=== PATIENT | male | born 1970 | race Caucasian/White ===

== ENCOUNTER 2020-06-12 07:03 | Outpatient (REF) | payer OTHER, SELFPAY ==
[2020-06-12 08:06] LABS: MANUAL DIFF FLAG NO
[2020-06-12 08:12] LABS: Basophils Percent Auto 0.6 % (0-2); Eosinophils Absolute Auto 0.2 X10*3/uL (0.0-0.4); Eosinophils Percent Auto 4.2 % (0-4); Hematocrit 43.7 % (42-52); Hemoglobin 14.6 g/dl (14.0-18.0); Imm Gran Abs Auto 0.04 X10*3/uL (0.00-0.03); Imm Gran Pct Auto 0.8 % (0.0-0.4); Lymphocytes Absolute Auto 1.1 X10*3/uL (1.2-4.9); Lymphocytes Percent Auto 22.8 % (20-40); Mean Corpuscular HGB Conc 33.4 g/dl (31.0-36.0); Mean Corpuscular Hemoglobin 30.3 pg (27.0-33.0); Mean Corpuscular Volume 90.7 fL (80-98); Mean Platelet Volume 8.8 fL (9.4-12.4); Monocytes Absolute Auto 0.6 X10*3/uL (0.1-1.2); Monocytes Percent Auto 12.2 % (2-11); Neutrophils Percent Auto 59.4 % (45-73); Platelet Count 318 X10*3/uL (160-400); Red Blood Count 4.82 X10*6/uL (4.60-5.80); Red Cell Distribution Width 11.5 % (11.0-16.0)
[2020-06-12 08:26] LABS: Alanine Aminotransferase 12 U/L (0-40); Albumin Level 4.3 g/dL (3.5-5.0); Alkaline Phosphatase 55 U/L (39-117); Anion Gap 13 (12-20); Aspartate Amino Transferase 17 U/L (5-37); Bilirubin Total 0.8 mg/dL (0.0-1.0); Blood Urea Nitrogen 13 mg/dL (9-16); C Reactive Protein 0.52 mg/dL (< or = 0.50); Calcium 9.5 mg/dL (8.4-10.2); Carbon Dioxide 27 mmol/L (22-29); Chloride 100 mmol/L (96-108); Estimated Glomerular Filt Rate > 60; Glucose Random 89 mg/dL (60-115); Potassium 3.9 mmol/l (3.3-5.1); Rheumatoid Factor < 15.0 IU/mL (<15.0); Sodium 136 mmol/L (135-145); Total Protein 7.6 g/dL (6.5-8.0); Uric Acid 8.2 mg/dL (3.4-7.0)
[2020-06-12 09:05] LABS: Erythrocyte Sedimentation Rate 13 MM/HR (0-15)
[2020-06-17 10:56] LABS: Anti Nuclear Antibody Pattern Nuclear, Homogeneous; Anti Nuclear Antibody Screen POSITIVE (NEGATIVE); Anti Nuclear Antibody Titer 1:40 titer
[2020-06-17 16:02] LABS: Cyclic Citrullinated Peptide <16 UNITS
== END 2020-06-12 07:04 | disposition home or self-care (01) ==
LOC: HO.LAB 07:03
PROVIDERS: Visit Provider Dermatology
DX: M13.89 Other specified arthritis, multiple sites (principal)
CPT/HCPCS: 36415; 80053; 84550; 85025; 85652; 86038; 86039; 86140; 86200; 86431

== ENCOUNTER 2020-09-06 16:21 | Outpatient (REF) | payer OTHER, SELFPAY ==
[2020-09-06 16:47] LABS: MANUAL DIFF FLAG NO
[2020-09-06 16:50] LABS: Basophils Percent Auto 0.4 % (0-2); Eosinophils Absolute Auto 0.1 X10*3/uL (0.0-0.4); Eosinophils Percent Auto 1.7 % (0-4); Hematocrit 41.9 % (42-52); Imm Gran Abs Auto 0.04 X10*3/uL (0.00-0.03); Imm Gran Pct Auto 0.6 % (0.0-0.4); Mean Corpuscular HGB Conc 33.4 g/dl (31.0-36.0); Mean Corpuscular Hemoglobin 30.3 pg (27.0-33.0); Mean Corpuscular Volume 90.7 fL (80-98); Mean Platelet Volume 8.3 fL (9.4-12.4); Monocytes Absolute Auto 0.9 X10*3/uL (0.1-1.2); Monocytes Percent Auto 12.4 % (2-11); Neutrophils Absolute Auto 3.9 X10*3/uL (2.0-8.3); Neutrophils Percent Auto 55.9 % (45-73); Platelet Count 337 X10*3/uL (160-400); Red Blood Count 4.62 X10*6/uL (4.60-5.80); Red Cell Distribution Width 11.9 % (11.0-16.0)
[2020-09-06 16:58] LABS: Glucose Urine UA NEG (NEG); Leukocyte Esterase Urine NEG (NEG); Nitrite Urine NEG (NEG); Specific Gravity - Urine 1.025 (1.005-1.025); Urine Blood TRACE (NEG); Urine Ketones NEG (NEG); Urine Protein NEG (NEG-TRACE)
[2020-09-06 17:00] LABS: Color Urine YELLOW
[2020-09-06 17:01] LABS: Appearance Urine CLEAR
[2020-09-06 17:15] LABS: Alanine Aminotransferase 12 U/L (0-40); Albumin Level 4.5 g/dL (3.5-5.0); Alkaline Phosphatase 76 U/L (39-117); Aspartate Amino Transferase 15 U/L (5-37); Bilirubin Direct 0.2 mg/dL (0.0-0.5); Bilirubin Total 0.3 mg/dL (0.0-1.0); Lipase 34 U/L (8-78); Total Protein 7.9 g/dL (6.5-8.0)
[2020-09-06 17:19] LABS: RBC Urine 0-2 /HPF (0); Squamous Epithelial Cell Urine TRACE /LPF; WBC Urine 0 /HPF (0-4)
== END 2020-09-06 16:22 | disposition home or self-care (01) ==
LOC: HO.LAB 16:21
PROVIDERS: PCP Hospitalist; Visit Provider Hospitalist
DX: Z00.00 Encounter for general adult medical examination without abnormal findings (principal)
CPT/HCPCS: 36415; 80076; 81001; 81003; 83690; 84443; 85025

== ENCOUNTER 2020-11-07 07:10 | Day surgery (SDC) | payer OTHER, SELFPAY ==
[2020-10-31 15:02] VITALS: BMI 33.9
--- NOTE | 2020-11-06 09:36 | P.CONAN_ITS ---
Documented by User: Liliana Celestin 11/06/20 09:41 HPI - Anesthesia Eval Consult details Narrative: 50yo M for Colonoscopy PMFSH Active Problems Active Problems: All Active Problems (Updated 10/31/20 @ 15:00 by Dahlia Haddad) Colon cancer screening (Acute) Well adult exam (Acute) Hypertension, essential, benign (Acute) Erectile dysfunction (Acute) Past Medical History Medical History (Updated 10/31/20 @ 15:00 by Dahlia Haddad) Diverticulosis Eczema Fatty liver Gout HTN (hypertension) Hx of staphylococcal infection Renal cyst, right Surgical History Surgical History (Updated 10/31/20 @ 15:00 by Dahlia Haddad) H/O umbilical hernia repair History of ankle surgery History of surgical removal of ganglion cyst Social History Social History (Updated 10/31/20 @ 15:01 by Dahlia Haddad) Alcohol intake: current Alcohol intake frequency: holidays/special occasions only Smoking Status: Never smoker Use of substances other than those prescribed or required for medical reasons: No Have you been hit, kicked, punched, or otherwise hurt by someone within the past year? If so, by whom?: No Advance Directives: No Advance Directives Information Provided: No Advance Directives on File: No Meds Allergies Allergy/AdvReac Type Severity Reaction Status Date / Time No Known Allergies Allergy Verified 10/31/20 15:01 [No Known Allergies*] Home Medications Medication Instructions Recorded Confirmed Last Taken Type metoprolol succinate 25 mg 25 mg PO DAILY 09/13/20 Unknown History tablet,extended release 24 hr indomethacin 50 mg PO DAILY 10/31/20 10/31/20 Unknown History Exam Exam Date and Time: November 06, 2020 0936 Height,Weight and Vital Signs: Height 6 ft Weight 113.398 kg Pertinent Lab Results Pertinent Lab Results: Laboratory Tests 06/12/20 09/06/20 07:20 16:30 WBC 7.0 Hgb 14.0 Hct 41.9 L Plt Count 337 Sodium 136 Potassium 3.9 Chloride 100 Carbon Dioxide 27 BUN 13 Creatinine 0.79 Assessment and Plan Assessment Anesthesia Assessment: Chart Reviewed Documented by User: Wilfredo Brooks MD 11/07/20 08:11 [facility] Past Medical History Medical History (Updated 10/31/20 @ 15:00 by Dahlia Haddad) Diverticulosis Eczema Fatty liver Gout HTN (hypertension) Hx of staphylococcal infection Renal cyst, right Surgical History Surgical History (Updated 10/31/20 @ 15:00 by Dahlia Haddad) H/O umbilical hernia repair History of ankle surgery History of surgical removal of ganglion cyst Social History Social History (Updated 10/31/20 @ 15:01 by Dahlia Haddad) Alcohol intake: current Alcohol intake frequency: holidays/special occasions only Smoking Status: Never smoker Use of substances other than those prescribed or required for medical reasons: No Have you been hit, kicked, punched, or otherwise hurt by someone within the past year? If so, by whom?: No Advance Directives: No Advance Directives Information Provided: No Advance Directives on File: No Meds Allergies Allergy/AdvReac Type Severity Reaction Status Date / Time No Known Allergies Allergy Verified 10/31/20 15:01 [No Known Allergies*] Home Medications Medication Instructions Recorded Confirmed Last Taken Type metoprolol succinate 25 mg 25 mg PO DAILY 09/13/20 Unknown History tablet,extended release 24 hr indomethacin 50 mg PO DAILY 10/31/20 10/31/20 Unknown History Exam Airway Mallampati Class: I TM Dist: >3cm Neck ROM: Full Loose/Missing/Broken Teeth: No Heart: RRR, SINUS TACHY Lungs: NL Assessment and Plan Assessment Anesthesia Assessment: Anesthesia Plan Discussed and Chart Reviewed Final Anesthetic Review ASA Class: II Final Preanesthetic Review: No Changes in Pt Med Stat, Meds/Allgs Chart Reviewed, Consent Obtained/Reviewed and Anes Risks/Benef Reviewed Patient Risk: Intermediate Procedure Risk: Low Anesthetic Plan Anesthetic Plan: MAC: Disposition: Standard PACU
--- NOTE | 2020-11-07 07:17 | MHC.SHP ---
Pre-Procedural Eval Section B Chief Complaint: screening Relevant Family History (Specify if Yes): No Relevant Social History: None Present Medications: see Short Stay Collaborative assessment Medical History: Significant History (Diverticulosis Eczema Fatty liver Gout HTN (hypertension) Hx of staphylococcal infection Renal cyst, right) History of Previous Operations: Relevant previous surgery/procedure and date(s) (ankle surgery, umbilical hernia repair) Allergies: Allergies Allergy/AdvReac Type Severity Reaction Status Date / Time No Known Allergies Allergy Verified 10/31/20 15:01 [No Known Allergies*] Review of Systems Sugical H&P ROS: Negative: Constitution, Cardiovascular, Respiratory, Neurological, Psychiatric, Hem-Onc, Allergic/Immunologic, Gastrointestinal, Genitourinary, Musculoskeletal, Integumentary, Endocrine and Eyes/Ears/Nose/Throat Exam Surgical H&P Exam: Normal: HEENT, Normal: Heart, Normal: Lungs, Normal: Extremities, Normal: Abdomen, Normal: Skin and Normal: Neurological Plan Diagnosis/Plan: Unchanged I have reviewed the history and physical and performed a pertinent physical examination on my patient. No changes have occurred unless specified.
[2020-11-07 07:40] VITALS: BP 131/85; PULSE 110; RESP 18; TEMP 37.2; O2SAT 97
[2020-11-07] MEDS: Lactated Ringers 1,000 ML 100 ML IVCONT (07:51)
--- NOTE | 2020-11-07 08:42 | P.OP_ITS ---
Operative Note Operative Note Date of Service: 11/07/20 Narrative: Operative Information Procedure Description: Colonoscopy COLONOSCOPY Instrument: Olympus variable stiffness pediatric scope 190L Colonoscopy Monitoring: Vital signs and clinical assessment, continuous EKG monitoring, Pulse oximetry, Carbon Dioxide monitoring and blood pressure monitoring were done throughout the procedure. Colon withdrawal time was 14 minutes. Procedure: The patient was placed in the left lateral decubitis position and pre-procedure medications were administered. After a digital rectal examination of the ano-rectum, the video colonoscope was inserted into the rectum and advanced through the colon to the cecum/TI. The colonoscope was slowly withdrawn in a retrograde panoramic fashion and the colon mucosa was carefully examined including a retroflexed view of the rectum. Findings and interventions are described below. Procedure Difficulty: easy Findings: Terminal Ileum-normal Cecum:normal Ascending Colon: normal Transverse Colon -normal Descending Colon:normal Sigmoid Colon: normal Rectum: Retroflexion with moderate sized internal hemorrhoids, grade I, x 2 sessile polyps 8-9 mm in proximal rectum removed with forceps Anorectum - normal Colon preparation: [place] Bowel Preparation Scale Right colon; 2 Transverse colon: 2 Left colon; 2 (0 = Unprepared colon segment with mucosa not seen due to solid stool that cannot be cleared. 1 = Portion of mucosa of the colon segment seen, but other areas of the colon segment not well seen due to staining, residual stool and/or opaque liquid. 2 = Minor amount of residual staining, small fragments of stool and/or opaque li quid, but mucosa of colon segment seen well. 3 = Entire mucosa of colon segment seen well with no residual staining, small fragments of stool or opaque liquid) Impression and Post Procedure Diagnosis: polyps internal hemorrhoids Plan: High fiber diet leaflet Avoid straining at stool, epsom salts and sitz bath, anusol supps or cream as needed Repeat Colonoscopy in 5 years if adenoma, 10 yrs if hyperplastic or earlier if clinically indicated Above findings were reviewed with the patient and relevant handouts were provided if indicated.
--- NOTE | 2020-11-07 08:42 | PM.OP ---
Brief Operative Note Date of Service: 11/07/20 Pre-op diagnosis: colon screening Post-op diagnosis: same Procedure: see op note Surgeon: Chance St MD Anesthesia: MAC Estimated blood loss (mL): 0 Condition: stable Disposition: PACU
[2020-11-07 09:10] VITALS: BP 100/66; PULSE 100; RESP 16; TEMP 37.6; O2SAT 97
[2020-11-07 09:25] VITALS: BP 108/73; PULSE 85; RESP 17; TEMP 37; O2SAT 99
== END 2020-11-07 10:23 | disposition home or self-care (01) ==
PROVIDERS: Visit Provider Internal Medicine Gastroenterology
PROC: 0DJD8ZZ Inspection of Lower Intestinal Tract, Via Natural or Artificial Opening Endoscopic (ICD-10-PCS; CPT 45378; principal; 2020-11-07 08:30)
DX: Z12.11 Encounter for screening for malignant neoplasm of colon (principal); K62.1 Rectal polyp; K57.30 Diverticulosis of large intestine without perforation or abscess without bleeding; K64.0 First degree hemorrhoids; K76.0 Fatty (change of) liver, not elsewhere classified; I10 Essential (primary) hypertension; L30.9 Dermatitis, unspecified; Z79.899 Other long term (current) drug therapy
CPT/HCPCS: 45380; 88305; J3010

== ENCOUNTER 2020-11-11 15:37 | Outpatient (REF) | payer OTHER, SELFPAY ==
[2020-11-11 16:27] LABS: Cholesterol 159 mg/dL; HDL Cholesterol 26 mg/dL; LDL Cholesterol Calculated 89 mg/dl; Triglycerides 221 mg/dL
== END 2020-11-11 15:38 | disposition home or self-care (01) ==
LOC: HO.LAB 15:37
PROVIDERS: Visit Provider Hospitalist
DX: Z00.00 Encounter for general adult medical examination without abnormal findings (principal)
CPT/HCPCS: 36415; 80061

== ENCOUNTER → 2020-11-29 13:14 | Outpatient (BNVA) | payer OTHER, SELFPAY | PROVIDERS: PCP Hospitalist; Visit Provider Nurse Practitioner ==

== ENCOUNTER 2021-05-23 13:05 | Outpatient (REF) | payer OTHER, SELFPAY ==
--- NOTE | ~2021-05-23 | XR_ITS ---
EXAMINATION: XR SHOULDER, RIGHT CLINICAL INFORMATION: Pain right shoulder COMPARISON: None TECHNIQUE: AP external rotation, Grashey, scapular Y, and axillary views of the right shoulder. FINDINGS: There is severe loss of right glenohumeral shoulder joint space with moderate periarticular spurring. There are, subchondral cystic changes along the glenoid and the humeral head. The AC joint is intact. The soft tissues are normal. XR/XR shoulder RT min 2V IMPRESSION: Moderate degenerative arthritic changes right shoulder joint. No visible acute fracture or dislocation seen.
== END 2021-05-23 13:06 | disposition home or self-care (01) ==
LOC: HO.XRAY 13:05
PROVIDERS: PCP Hospitalist; Visit Provider Hospitalist
DX: M25.511 Pain in right shoulder (principal)
CPT/HCPCS: 73030

== ENCOUNTER 2021-12-04 08:03 | Outpatient (REF) | payer OTHER, SELFPAY ==
[2021-12-04 09:10] LABS: Alanine Aminotransferase 12 U/L (0-40); Albumin Level 4.4 g/dL (3.5-5.0); Alkaline Phosphatase 60 U/L (39-117); Anion Gap 14 (12-20); Aspartate Amino Transferase 13 U/L (5-37); Bilirubin Total 0.6 mg/dL (0.0-1.0); Blood Urea Nitrogen 16 mg/dL (9-16); Calcium 9.9 mg/dL (8.4-10.2); Carbon Dioxide 27 mmol/L (22-29); Chloride 101 mmol/L (96-108); Estimated Glomerular Filt Rate > 60; Glucose Fasting 116 mg/dL (60-99); Potassium 4.5 mmol/L (3.3-5.1); Sodium 137 mmol/L (135-145); Total Protein 7.6 g/dL (6.5-8.0)
== END 2021-12-04 08:04 | disposition home or self-care (01) ==
LOC: HO.LAB 08:03
PROVIDERS: PCP Hospitalist; Visit Provider Hospitalist
DX: Z00.01 Encounter for general adult medical examination with abnormal findings (principal)
CPT/HCPCS: 36415; 80053

== ENCOUNTER 2022-10-29 12:07 | Outpatient (REF) | payer OTHER, SELFPAY ==
--- NOTE | ~2022-10-29 | XR_ITS ---
EXAMINATION: XR SHOULDER, RIGHT CLINICAL INFORMATION: Right shoulder pain. COMPARISON: None available. TECHNIQUE: AP neutral, scapula Y and axillary views of the right shoulder are submitted. FINDINGS: There is bony demineralization. There is marked narrowing of the right acetabular joint space, with exuberant peripheral osteophyte formation of the inferior articular surface. The acromioclavicular and coracoclavicular intervals are normal. No fracture or dislocation is seen. There is mild calcific tendinitis of the right rotator cuff. There is no foreign body. No right pneumothorax is seen. XR/XR shoulder RT min 2V IMPRESSION: 1. There is marked osteoarthritic change of the right glenohumeral joint. 2. There is calcific tendinitis of the right rotator cuff insertion.
== END 2022-10-29 12:08 | disposition home or self-care (01) ==
LOC: HO.HOSX 12:07
PROVIDERS: Visit Provider Orthopaedic Surgery
DX: M19.011 Primary osteoarthritis, right shoulder (principal)
CPT/HCPCS: 73030

== ENCOUNTER 2022-12-09 14:53 | Outpatient (REF) | payer OTHER, SELFPAY ==
--- NOTE | ~2022-12-09 | CT_ITS ---
EXAMINATION: CT SHOULDER WITHOUT CONTRAST, RIGHT CLINICAL INFORMATION: Left shoulder osteoarthritis, presurgical planning COMPARISON: Radiographs 10/29/2022 TECHNIQUE: A noncontrast CT of the right shoulder is performed with sagittal and coronal reformats This CT examination was performed using dose optimization techniques as appropriate, variously including the following: *Automated exposure control *Adjustment of mA and/or kV according to patient size (this includes techniques or standardized protocols for targeted exams where dose is matched to indication/reason for exam; i.e. extremities or head) *Use of iterative reconstruction technique DLP: 380 mGy-cm FINDINGS: Severe glenohumeral osteoarthritis with marked narrowing, numerous degenerative cysts, and prominent marginal osteophytes. There is remodeling of the glenoid resulting in a retroversion of approximately 13 degrees. The corrected glenoid vault depth is approximately 19 mm, and the humeral head is posteriorly subluxed [address]/CT shoulder RT wo IV con IMPRESSION: Severe glenohumeral osteoarthritis.
== END 2022-12-09 14:54 | disposition home or self-care (01) ==
LOC: HO.CT 14:53
PROVIDERS: PCP Hospitalist; Visit Provider Orthopaedic Surgery
DX: M19.011 Primary osteoarthritis, right shoulder (principal)
CPT/HCPCS: 73200

== ENCOUNTER 2023-04-08 14:54 | Outpatient (AMB) | payer OTHER, SELFPAY ==
--- NOTE | 2023-04-08 15:06 | MHC.PC.OV ---
Vital Signs 04/08/23 15:07 Height 6 ft Weight 247 lb 4 oz BMI 33.5 BP 122/78 Blood Pressure Location Rt brachial Position Sitting Respiration 12 Pulse 97 Pulse Source Pulse Oximeter Temp 97.6 F Temp Source Temporal Artery Scan Pulse Oximetry (%) 99 Oxygen Delivery Method Room Air Intake Visit Reasons: 05/11/23 - R TSA under [place] First Breaker Feeder Required: No Accompanied by: Self / Same As Patient Allergies avocado Allergy (Intermediate, Verified 04/08/23 15:16) itch throat and hard to breath banana Allergy (Intermediate, Verified 04/08/23 15:16) itch throat and hard to breath nuts Allergy (Unknown, Uncoded 05/26/22 15:02) itchy throat, SOB Medication List - Last Reconciled 04/08/23 by Shani Chance CNP indomethacin 100 mg (2 x 50 mg) PO DAILY 30 days lisinopril 10 mg PO DAILY lorazepam 0.5 mg PO DAILY PRN sildenafil 100 mg PO DAILY PRN Tobacco use date assessed: 10/07/22 Dental Screening Dental Screen Date: 04/08/23 Did you have a dental visit in the last 12 months?: Yes Did you have a dental problem in the last 6 months where you did not have access to dental care?: No Was dental information given to patient?: Patient has dentist HPI HPI Comments History of Present Illness Details 52-year-old male presents for a preop exam. He notes he is scheduled for total replacement of the right shoulder on 05/11/2023. He reports chronic intermittent right shoulder pain. No acute symptoms today. He is [place] [facility] Medical History Diverticulosis Eczema Fatty liver Gout HTN (hypertension) Hx of staphylococcal infection Renal cyst, right Surgical History H/O umbilical hernia repair History of ankle surgery History of surgical removal of ganglion cyst Social History Housing: House Alcohol intake: current Alcohol intake frequency: holidays/special occasions only Patient Tobacco Use Status: Never used Tobacco e-Cigarette/Vaping Use: Never Used Second Hand Smoke Exposure: No service: No Current occupational status: employed Current occupation: [employer] Cognitive needs: No Hearing needs: No Vision needs: Yes (reading glasses) Questionnaire Thrive Questionnaire Date Thrive assessed: 10/07/22 CARLOS-7 AMB Questionnaire CARLOS-7 Date CARLOS - 7 assessed: 10/07/22 Source: Developed by Drs. Marek Hermosillo, Ya Coffman, Shekhar Roberts and colleagues, with an educational beckie from [employer]. Review of Systems Const Details: Const Denies chills, Denies fatigue, Denies fever(s), Denies headache(s) and Denies weakness ENT Denies dizziness and Denies headache(s) Card Denies chest pain, Denies lightheadedness, Denies dyspnea and Denies other (Palpitations) Resp Denies cough, Denies dyspnea, Denies wheezing and Denies other ( shortness of breath) GI Denies abdominal pain, Denies melena, Denies hematochezia, Denies change in bowel habits, Denies dyspepsia and Denies nausea Denies hematuria and Denies dysuria Musc Denies abnormal gait, Denies myalgias, Denies arthralgias, Denies numbness and Denies tingling Skin/Breast Denies rash, Denies unusual bruising and Denies wounds Neuro Denies abnormal gait, Denies dizziness, Denies headache(s), Denies memory loss, Denies numbness, Denies Sensory deficit (Neuro), Denies tingling and Denies weakness Psych Denies anxiety, Denies depression, Denies memory loss Endo Denies cold intolerance, Denies fatigue, Denies heat intolerance, Denies polydipsia and Denies polyuria Aller/Immun Denies wheezing Physical exam (Primary Care) Vital Signs: Last Vital Signs Temp 97.6 F 04/08/23 15:07 Pulse 97 04/08/23 15:07 Resp 12 04/08/23 15:07 BP 122/78 04/08/23 15:07 Pulse Ox 99 04/08/23 15:07 Oxygen Delivery Method Room Air 04/08/23 15:07 BMI result Body Mass Index 33.5 Tobacco/Smoking Status: Tobacco use Status Tobacco use date assessed 10/07/22 04/08/23 15:13 Patient Tobacco Use Status Never used Tobacco 04/08/23 15:13 e-Cigarette/Vaping Use Never Used 04/08/23 15:13 Thrive Assessment: Date of Thrive Assessment Date Thrive assessed 10/07/22 04/08/23 15:13 Const Other: General: no acute distress and well developed Nutritional Appearance: well nourished Orientation/consciousness: patient oriented x3 [facility] Head: Yes normocephalic and Yes atraumatic Eyes General: appearance normal, both eyes and all related structures Pupils: Equal, round and reactive pupils present EOM: EOMs intact bilaterally Resp Effort & Inspection: normal respiratory effort Auscultation: clear to auscultation bilaterally Cardio Rate: regular rate Rhythm: regular rhythm Heart sounds: S1 normal heart sound present, S2 normal heart sound present, no gallops, no murmurs and no rubs GI Palpation (GI): No Abdominal aortic bruit present, Soft to palpation, nontender, No hepatosplenomegaly present and No Rebound tenderness present Auscultation: normal bowel sounds General: Yes no CVA tenderness Back/Spine/Pelvis Back: no CVA tenderness Cervical Spine: cervical ROM normal and No Cervical spine tenderness Thoracic/Lumbar Spine: thoraco-lumbar ROM normal, No pain with thoraco-lumbar ROM, No thoracic spinal tenderness and No lumbar spinal tenderness Extrem General: Yes normal to inspection, No edema and No calf tenderness Limited ROM of the right shoulder Skin General: warm and dry. Normal skin color. Normal skin turgor Lesions: no lesions Rashes: no rashes Trauma: no lacerations or abrasions Wounds: no wounds Nails: normal Neuro General: patient oriented x3, gait normal and no focal neuro deficit Cranial nerves: Yes Equal, round and reactive pupils present Cognition (Neuro): normal cognition Gait exam (Neuro): Normal gait present Sensory Exam: No Sensory deficit (Neuro) Psych Appearance: grossly normal Affect: normal affect Attitude: cooperative Thought process: Normal thought process present Assessment and Plan Assessment & Plan (1) Preop examination: Code(s): Z01.818 - Encounter for other preprocedural examination Plan: 52-year-old male presents for a preop exam. He notes he is scheduled for total replacement of the right shoulder on 05/11/2023. He reports chronic intermittent right shoulder pain. No acute symptoms today. Limited ROM of the right shoulder. Physical exam is otherwise normal. He has not had blood work in a long time. Routine labs ordered. Advised to fast for at least 10-12 hours before getting blood work done. Follow-up with PCP as planned. Return with new or worsening symptoms. Verbalized understanding and agreed with treatment plan. Orders: Orders Lipid Panel Today Z01.818 - Encounter for other preprocedural examination TSH reflex Free T4 Today Z01.818 - Encounter for other preprocedural examination Complete Blood Count Auto Diff Today Z01.818 - Encounter for other preprocedural examination Comprehensive [place]. Panel Fast Today Z01.818 - Encounter for other preprocedural examination Coding Level of Care Code Est Pt Level 3 (47235) Diagnoses Preop examination Z01.818
[2023-04-08 15:07] VITALS: BP 122/78; PULSE 97; RESP 12; TEMP 36.4; O2SAT 99; BMI 33.5
== END 2023-04-08 15:46 | disposition home or self-care (01) ==
PROVIDERS: PCP Hospitalist; Visit Provider Nurse Practitioner Family
DX: Z01.818 Encounter for other preprocedural examination (principal)
CPT/HCPCS: 99213

== ENCOUNTER 2023-04-12 05:54 | Outpatient (REF) | payer OTHER, SELFPAY ==
[2023-04-12 06:09] LABS: MANUAL DIFF FLAG NO
[2023-04-12 08:18] LABS: Basophils Absolute Auto 0.1 X10*3/uL (0.0-0.2); Eosinophils Absolute Auto 0.1 X10*3/uL (0.0-0.4); Eosinophils Percent Auto 2.3 % (0-4); Hematocrit 44.6 % (42.0-52.0); Hemoglobin 14.8 g/dl (14.0-18.0); Imm Gran Abs Auto 0.08 X10*3/uL (0.00-0.03); Imm Gran Pct Auto 1.3 % (0.0-0.4); Lymphocytes Absolute Auto 1.6 X10*3/uL (1.2-4.9); Lymphocytes Percent Auto 25.4 % (20-40); Mean Corpuscular HGB Conc 33.2 g/dl (31.0-36.0); Mean Corpuscular Hemoglobin 30.5 pg (27.0-33.0); Mean Platelet Volume 8.4 fL (9.4-12.4); Monocytes Absolute Auto 0.9 X10*3/uL (0.1-1.2); Monocytes Percent Auto 14.2 % (2-11); Neutrophils Absolute Auto 3.4 x10*3/uL (2.0-8.3); Neutrophils Percent Auto 55.8 % (45-73); Platelet Count 346 X10*3/uL (160-400); Red Blood Count 4.85 X10*6/uL (4.60-5.80); Red Cell Distribution Width 11.8 % (11.0-16.0); White Blood Count 6.1 X10*3/uL (4.8-10.8)
[2023-04-12 09:15] LABS: Alanine Aminotransferase 12 U/L (0-40); Albumin Level 4.3 g/dL (3.5-5.0); Alkaline Phosphatase 56 U/L (39-117); Anion Gap 12 (12-20); Aspartate Amino Transferase 14 U/L (5-37); Bilirubin Total 0.5 mg/dL (0.0-1.0); Blood Urea Nitrogen 20 mg/dL (9-16); Calcium 9.8 mg/dL (8.4-10.2); Carbon Dioxide 27 mmol/L (22-29); Chloride 103 mmol/L (96-108); Cholesterol 185 mg/dL (<200); Estimated Glomerular Filt Rate > 60; Glucose Fasting 86 mg/dL (60-99); HDL Cholesterol 37 mg/dL (>40); LDL Cholesterol Calculated 119 mg/dL (<100); Sodium 138 mmol/L (135-145); TSH reflex Free T4 1.34 uIU/mL (0.32-4.0); Total Protein 7.8 g/dL (6.5-8.0); Triglycerides 147 mg/dL (<150)
== END 2023-04-12 05:55 | disposition home or self-care (01) ==
LOC: HO.LAB 05:54
PROVIDERS: PCP Hospitalist; Visit Provider Nurse Practitioner Family
DX: Z01.818 Encounter for other preprocedural examination (principal)
CPT/HCPCS: 36415; 80053; 80061; 84443; 85025

== ENCOUNTER → 2023-04-13 12:41 | Outpatient (BNVA) | payer OTHER, SELFPAY | PROVIDERS: Visit Provider Orthopaedic Surgery ==

== ENCOUNTER 2023-05-06 13:05 | Outpatient (AMB) | payer OTHER, SELFPAY ==
[2023-05-06 13:17] VITALS: BMI 33.5
--- NOTE | 2023-05-06 13:17 | MHC.OFFVIS ---
Intake Vital Signs 05/06/23 13:17 Height 6 ft Weight 247 lb BMI 33.5 Intake Visit Reasons: Pre-Op RT TSA 05/11/23 NE Intake Note: Lukasz 52 yr old male presents today for his Pre op visit for his Right TSA schedule for 05/11/23. Pain management agreement signed and reviewed. Shoulder sling fitted. Allergies avocado Allergy (Intermediate, Verified 05/06/23 13:28) itchy throat, shortness of breath banana Allergy (Intermediate, Verified 05/06/23 13:28) itchy throat, shortness of breath tree nut Allergy (Intermediate, Verified 05/06/23 13:28) itchy throat, shortness of breath HPI HPI Comments History of Present Illness Details Ms Calles presents to the office today for preop visit. He is scheduled for right total shoulder arthroplasty with Dr. Caban. He continues to have ongoing pain and difficulty with in the right shoulder, which is affecting his quality of life; therefore, he has elected to move forward with surgery. [facility] Medical History (Updated 05/06/23 @ 15:04 by Jeremy Gifford PA-C) Arthritis Eczema Diverticulosis Fatty liver Hx of staphylococcal infection Gout HTN (hypertension) Surgical History (Updated 04/27/23 @ 11:47 by Arely Pradhan RN) H/O colonoscopy H/O umbilical hernia repair History of surgical removal of ganglion cyst History of ankle surgery Social History Housing: House Are you a primary rn intensive care unit to a significant other at home: No Do you presently have visiting nurse or other home services: No Alcohol intake: current Alcohol intake frequency: holidays/special occasions only Patient Tobacco Use Status: Never used Tobacco e-Cigarette/Vaping Use: Never Used Second Hand Smoke Exposure: No Use of substances other than those prescribed or required for medical reasons: Yes Substance Use Frequency: Occasionally Have you been hit, kicked, punched, or otherwise hurt by someone within the past year? 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 Cognitive needs: No Hearing needs: No Vision needs: Yes (reading glasses) Review of Systems Const All systems reviewed & are unremarkable except as noted in HPI and below Physical Exam Vital Signs: BMI result Body Mass Index 33.5 Const General: no acute distress, alert and awake Orientation/consciousness: patient oriented x3 HEENT Head: Yes normocephalic and Yes atraumatic Eyes General: appearance normal, both eyes and all related structures EOM: EOMs intact bilaterally Neck Neck: Yes normal visual inspection and Yes no lymphadenopathy Resp Effort & Inspection: normal respiratory effort and able to speak in complete sentences Cardio Jugular venous distension: no JVD Rate: regular rate Peripheral pulses: Peripheral pulses 2+ throughout GI Inspection: Yes normal to inspection Palpation (GI): Soft to palpation Skin General skin exam: turgor normal Rashes: no rashes Neuro General: patient oriented x3 Extrem Other: Right Shoulder: AB 80 degrees ER 20 degrees - Empty can Skin intact. No abrasion. Psych Appearance: grossly normal Mental Status: mental status grossly normal Affect: normal affect Attitude: cooperative Results Reviewed Results Reviewed: MRI of the right shoulder : 1. Intact RTC. Mild infraspinatus muscle atrophy with fatty replacement 2. Severe GHJ oa Assessment & Plan Assessment & Plan (1) Osteoarthritis of right glenohumeral joint: Code(s): M19.011 - Primary osteoarthritis, right shoulder Plan I discussed in detail the procedure and what to expect pre and post operatively. We discussed the risks, benefits and alternatives to the surgery as well as the rehabilitation course. The risks; which include, but are not limited to infection, bleeding, nerve injury, ongoing pain, swelling, and stiffness, perioperative risk of injury to bones and soft tissues, and blood clots. I?ve answered all questions and with their understanding they have consented to move forward with Right total shoulder arthroplasty with Dr. Caban Coding Level of Care Code Est Pt Level 3 (92494) Diagnoses Osteoarthritis of right glenohumeral joint M19.011
== END 2023-05-06 13:51 | disposition home or self-care (01) ==
PROVIDERS: Visit Provider Physician Assistant
DX: M19.011 Primary osteoarthritis, right shoulder (principal)
CPT/HCPCS: 99213

== ENCOUNTER → 2023-05-06 13:05 | Outpatient (BNVA) | payer OTHER, SELFPAY | PROVIDERS: Visit Provider Physician Assistant ==

== ENCOUNTER 2023-05-11 05:55 | Day surgery (SDC) | payer OTHER, SELFPAY ==
[2023-04-27 11:50] VITALS: BP 122/76; PULSE 64; RESP 20; O2SAT 97; BMI 33.5
--- NOTE | 2023-04-27 12:09 | HO.ANESPROP2 ---
Documented by User: Liliana Celestin NP 05/10/23 08:53 HPI - Anesthesia Eval Consult details Narrative: 52yo M for Right Right Shoulder Total Arthroplasty, 05/11/23 Medically optimized No recent illness No CP/SOB with > 4mets PMFSH Active Problems Active Problems: All Active Problems (Updated 04/27/23 @ 11:45 by Arely Pradhan, RN) Preop examination (Acute) Normal physical exam (Acute) Encounter for routine adult physical exam with abnormal findings (Acute) Arthritis of shoulder region, right (Acute) Right anterior shoulder pain (Acute) Hypertriglyceridemia (Acute) Low HDL (under 40) (Acute) Anxiety and depression (Acute) Erectile dysfunction (Acute) Hypertension, essential, benign (Acute) Well adult exam (Acute) Colon cancer screening (Acute) Gout (Acute) Eczema (Acute) Past Medical History Medical History (Updated 05/06/23 @ 15:04 by Jeremy Gifford PA-C) Arthritis Eczema Diverticulosis Fatty liver Hx of staphylococcal infection Gout HTN (hypertension) Family History Family history of problems with anesthesia: No Surgical History Surgical History (Updated 04/27/23 @ 11:47 by Arely Pradhan RN) H/O colonoscopy H/O umbilical hernia repair History of surgical removal of ganglion cyst History of ankle surgery History of Problems with Anesthesia: No Social History Social History (Reviewed 05/06/23 @ 13:28 by Annemarie Gimenez [facility]) Housing: House Are you a primary direct care professional to a significant other at home: No Do you presently have visiting nurse or other home services: No Alcohol intake: current Alcohol intake frequency: holidays/special occasions only Patient Tobacco Use Status: Never used Tobacco e-Cigarette/Vaping Use: Never Used Second Hand Smoke Exposure: No Use of substances other than those prescribed or required for medical reasons: Yes Substance Use Frequency: Occasionally Have you been hit, kicked, punched, or otherwise hurt by someone within the past year? 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 Cognitive needs: No Hearing needs: No Vision needs: Yes (reading glasses) Meds Allergies Allergy/AdvReac Type Severity Reaction Status Date / Time avocado Allergy Intermediate itchy Verified 05/06/23 13:28 throat, shortness of breath banana Allergy Intermediate itchy Verified 05/06/23 13:28 throat, shortness of breath tree nut Allergy Intermediate itchy Verified 05/06/23 13:28 throat, shortness of breath Home Medications Medication Instructions Recorded Confirmed Last Taken Type dupilumab 300 mg/2 mL subcutaneous 300 mg subcut Q2W eczema 04/13/23 04/27/23 05/08/23 History syringe (DupixProximus) indomethacin 50 mg capsule 100 mg PO QAM 04/27/23 04/27/23 05/06/23 History lisinopril 10 mg tablet 10 mg PO QAM 04/27/23 04/27/23 05/10/23 History Exam Exam Date and Time: April 27, 2023 1209 Height,Weight and Vital Signs: Height 6 ft Weight 112.037 kg Last Vital Signs Pulse 64 04/27/23 11:50 Resp 20 04/27/23 11:50 BP 122/76 04/27/23 11:50 Pulse Ox 97 04/27/23 11:50 O2 Del Method Room Air 04/27/23 11:50 Pertinent Lab Results Pertinent Lab Results: Laboratory Tests 04/12/23 06:07 WBC 6.1 Hgb 14.8 Hct 44.6 Plt Count 346 Sodium 138 Potassium 4.0 Chloride 103 Carbon Dioxide 27 BUN 20 H Creatinine 0.77 Narrative Narrative: EKG 04/2023 Vent. Rate : 068 BPM Atrial Rate : 068 BPM P-R Int : 146 ms QRS Dur : 090 ms QT Int : 400 ms P-R-T Axes : 051 031 022 degrees QTc Int : 425 ms Normal sinus rhythm Normal ECG When compared with ECG of 18-OCT-2015 11:57, Premature ventricular complexes are no longer Present Vent. rate has decreased BY 37 BPM Airway Mallampati Class: I TM Dist: >3cm Neck ROM: Full Loose/Missing/Broken Teeth: No (3 x crowned molars) Heart: RRR Lungs: CTAB Assessment and Plan Assessment Anesthesia Assessment: Anesthesia Plan Discussed and PAT Visit Final Anesthetic Review Family History of Problems with Anesthesia: No History of Problems with Anesthesia: No Documented by User: Robert Jacobs MD 05/11/23 07:22 [facility] Past Medical History Medical History (Updated 05/06/23 @ 15:04 by Jeremy Gifford PA-C) Arthritis Eczema Diverticulosis Fatty liver Hx of staphylococcal infection Gout HTN (hypertension) Surgical History Surgical History (Updated 04/27/23 @ 11:47 by Arely Pradhan RN) H/O colonoscopy H/O umbilical hernia repair History of surgical removal of ganglion cyst History of ankle surgery Social History Social History (Reviewed 05/06/23 @ 13:28 by Annemarie Gimenez [facility]) Housing: House Are you a primary direct care professional to a significant other at home: No Do you presently have visiting nurse or other home services: No Alcohol intake: current Alcohol intake frequency: holidays/special occasions only Patient Tobacco Use Status: Never used Tobacco e-Cigarette/Vaping Use: Never Used Second Hand Smoke Exposure: No Use of substances other than those prescribed or required for medical reasons: Yes Substance Use Frequency: Occasionally Have you been hit, kicked, punched, or otherwise hurt by someone within the past year? 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 Cognitive needs: No Hearing needs: No Vision needs: Yes (reading glasses) Meds Allergies Allergy/AdvReac Type Severity Reaction Status Date / Time avocado Allergy Intermediate itchy Verified 05/06/23 13:28 throat, shortness of breath banana Allergy Intermediate itchy Verified 05/06/23 13:28 throat, shortness of breath tree nut Allergy Intermediate itchy Verified 05/06/23 13:28 throat, shortness of breath Home Medications Medication Instructions Recorded Confirmed Last Taken Type dupilumab 300 mg/2 mL subcutaneous 300 mg subcut Q2W eczema 04/13/23 04/27/23 05/08/23 History syringe (Dupixent) indomethacin 50 mg capsule 100 mg PO QAM 04/27/23 04/27/23 05/06/23 History lisinopril 10 mg tablet 10 mg PO QAM 04/27/23 04/27/23 05/10/23 History Exam Airway Mallampati Class: III Assessment and Plan Final Anesthetic Review NPO: Yes ASA Class: III Final Preanesthetic Review: No Changes in Pt Med Stat, Meds/Allgs Chart Reviewed, Consent Obtained/Reviewed and Anes Risks/Benef Reviewed Patient Risk: Intermediate Procedure Risk: Intermediate Anesthetic Plan Anesthetic Plan: GA and Regional Block Disposition: Standard PACU
--- NOTE | 2023-04-27 12:33 | ECG_ITS ---
Test Reason : preop Blood Pressure : / mmHG Vent. Rate : 068 BPM Atrial Rate : 068 BPM P-R Int : 146 ms QRS Dur : 090 ms QT Int : 400 ms P-R-T Axes : 051 031 022 degrees QTc Int : 425 ms Normal sinus rhythm Normal ECG When compared with ECG of 18-OCT-2015 11:57, Premature ventricular complexes are no longer Present Vent. rate has decreased BY 37 BPM Referred By: Jeremy Gifford Electronically Signed By:VICK BETHEA
[2023-04-27 15:14] LABS: MRSA Nasal PCR NEGATIVE (Negative); SA Nasal PCR POSITIVE (Negative)
[2023-05-11] VITALS (13 sets, daily range): BP systolic 102–146; BP diastolic 58–100; PULSE 70–93; RESP 16–20; TEMP 36.2–37.1; O2SAT 93–98; BMI 33.5
--- NOTE | ~2023-05-11 | XR_ITS ---
EXAMINATION: XR SHOULDER, RIGHT CLINICAL INFORMATION: Right TSA COMPARISON: Right shoulder radiograph 11/09/2022, right shoulder CT 12/09/2022 TECHNIQUE: AP internal rotation and scapular Y of the right shoulder. FINDINGS: Postoperative views of the right shoulder demonstrate a prosthesis in the the right humeral head. No fracture. Glenohumeral and acromioclavicular alignment is anatomic. Subchondral cystic changes are seen within the glenoid. The AC joint is intact. Skin aleks project over the right shoulder. XR/XR shoulder RT min 2V IMPRESSION: Postoperative changes of the right shoulder without evidence of hardware complication.
[2023-05-11] MEDS: Lactated Ringers 1,000 ML 100 ML IVCONT ×3 (06:41→22:07)
--- NOTE | 2023-05-11 10:31 | P.BOP_ITS ---
Brief Operative Note Date of Service: 05/11/23 Pre-op diagnosis: Right shoulder OA Post-op diagnosis: same Procedure: Right TSA Implants: Tournier simplicity Pegged gelnoid with 15 deg posterior wedge, cemented Surgeon: Milind Caban MD Anesthesia: GETA Was an Internal Affairs Investigator used for this Procedure?: Yes Internal Affairs Investigator: Jeremy Gifford Estimated blood loss (mL): 200 IV fluids (mL): 1,000 Pathology: other Condition: stable Disposition: PACU
--- NOTE | 2023-05-11 11:30 | PHA.MEDREC ---
Pharmacy Consult ? Medication Reconciliation Pharmacy has reviewed the medication reconciliation.
[2023-05-11] MEDS: ceFAZolin Sodium/Dextrose,Iso 2 GM/50 ML PIGGYBACK IV ×2 (14:36→15:07)
--- NOTE | 2023-05-11 20:01 | PC.NURSE ---
Assumed care at 14:00. Alert and oriented x4, ambulating independently, OOB to chair. Doing IS to 2500 ccs with 10 reps at a time. LSC. Denying pain. Dressing intact without staining, arm brace in place, voiding without issue, no straight cath required.
[2023-05-11] MEDS: oxyCODONE HCl ER 10 MG TAB.ER.12H 20 MG PO (20:51)
[2023-05-11] MEDS: Celecoxib 200 MG CAPSULE PO (20:51)
[2023-05-11] MEDS: Docusate Sodium 100 MG CAPSULE PO (20:52)
[2023-05-11] MEDS: Aspirin 81 MG TAB.CHEW PO (20:52)
[2023-05-12] VITALS: BP 116/72; PULSE 77; RESP 16; TEMP 36.1; O2SAT 96
[2023-05-12 04:00] VITALS: BP 130/76; PULSE 67; RESP 16; TEMP 36; O2SAT 97
[2023-05-12] MEDS: oxyCODONE HCl Immed Release 5 MG TABLET PO (04:08)
[2023-05-12 05:19] VITALS: RESP 18
[2023-05-12] MEDS: HYDROmorphone HCl 0.5 MG/0.5 ML SYRINGE 0.25 MG IVPUSH (06:05)
[2023-05-12 07:12] LABS: MANUAL DIFF FLAG NO
[2023-05-12 07:17] LABS: Basophils Percent Auto 0.2 % (0-2); Eosinophils Percent Auto 0.3 % (0-4); Hemoglobin 12.4 g/dl (14.0-18.0); Imm Gran Abs Auto 0.08 X10*3/uL (0.00-0.03); Imm Gran Pct Auto 0.8 % (0.0-0.4); Lymphocytes Absolute Auto 1.5 X10*3/uL (1.2-4.9); Lymphocytes Percent Auto 15.5 % (20-40); Mean Corpuscular HGB Conc 33.5 g/dl (31.0-36.0); Mean Corpuscular Hemoglobin 31.2 pg (27.0-33.0); Mean Corpuscular Volume 93.2 fL (80.0-98.0); Mean Platelet Volume 8.3 fL (9.4-12.4); Monocytes Absolute Auto 1.3 X10*3/uL (0.1-1.2); Monocytes Percent Auto 13.5 % (2-11); Neutrophils Absolute Auto 6.9 x10*3/uL (2.0-8.3); Neutrophils Percent Auto 69.7 % (45-73); Platelet Count 269 X10*3/uL (160-400); Red Blood Count 3.97 X10*6/uL (4.60-5.80); Red Cell Distribution Width 11.9 % (11.0-16.0); White Blood Count 9.9 X10*3/uL (4.8-10.8)
[2023-05-12 07:21] VITALS: BP 134/80; PULSE 76; RESP 16; TEMP 36.7; O2SAT 98
--- NOTE | 2023-05-12 07:29 | PM.PNORT ---
Subjective Subjective Date of Service: 05/12/23 Interval history: POD1 s/p rTSA Patient is resting in bed comfortably No overnight events Pain is managed No additional complaints Physical Exam Vital Signs: Vital Signs: Last Vital Signs Temp 98.1 F 05/12/23 07:21 Pulse 76 05/12/23 07:21 Resp 16 05/12/23 07:21 BP 134/80 05/12/23 07:21 Pulse Ox 98 05/12/23 07:21 O2 Del Method Room Air 05/12/23 07:21 BMI result Body Mass Index 33.5 Const: General: cooperative, healthy appearing and no acute distress Resp: Effort & Inspection: normal respiratory effort and able to speak in complete sentences Cardio: Rate: regular rate Peripheral pulses: Peripheral pulses 2+ throughout GI: Palpation (GI): Soft to palpation Skin: Lesions: no lesions Rashes: no rashes Extrem: Other: Right shoulder dressing intact. Able to flex and extend at the wrist. Able to move all digits. Able to extend thumb. NVI. Procedures Date of Service Date of Service: 05/12/23 Progress Note: A&P Assessment and plan (1) Status post total replacement of right shoulder: Status: Acute Plan Continue pain mgmnt Begin ASA for dvt ppx begin OT for right TSA Dispo planning-Pending PT eval, pain mgmnt Time Spent With Patient Time: Total time managing care of this patient today ____ minutes. Quality Stroke Does the patient have a stroke diagnosis?: No VTE Prior VTE?: No VTE Risk Level:: Medical - moderate - high VTE Device Contraindication: N/A - Device Ordered VTE Drug Contraindication: N/A - Med Ordered
[2023-05-12 07:33] LABS: Anion Gap 12 (12-20); Blood Urea Nitrogen 17 mg/dL (9-16); Carbon Dioxide 26 mmol/L (22-29); Chloride 101 mmol/L (96-108); Creatinine Clr Calc Pharmacy 155.5; Estimated Glomerular Filt Rate > 60; Glucose Fasting 99 mg/dL (60-99); Potassium 3.7 mmol/L (3.3-5.1); Sodium 135 mmol/L (135-145)
[2023-05-12] MEDS: Celecoxib 200 MG CAPSULE PO (08:48)
[2023-05-12] MEDS: Indomethacin 25 MG CAPSULE 100 MG PO (08:48)
[2023-05-12] MEDS: Docusate Sodium 100 MG CAPSULE PO (08:48)
[2023-05-12] MEDS: Aspirin 81 MG TAB.CHEW PO (08:51)
[2023-05-12] MEDS: 0.9 % Sodium Chloride Flush 3 ML SYRINGE IVFLUSH (08:51)
[2023-05-12] MEDS: oxyCODONE HCl ER 10 MG TAB.ER.12H PO (09:04)
[2023-05-12] MEDS: Lactated Ringers 1,000 ML 100 ML IVCONT (09:07)
[2023-05-12] MEDS: lisinopriL 10 MG TABLET PO (09:07)
--- NOTE | 2023-05-12 09:38 | P.OP_ITS ---
Operative Note Operative Note Date of Service: 05/11/23 Narrative: Date of Service: 05/11/23 Pre-op diagnosis: Right shoulder OA Post-op diagnosis: same Procedure: Right TSA Implants: Tournier nucleus Medium right Cortiloc Pegged glenoid with 15 deg posterior wedge, cemented Surgeon: Milind Caban MD Anesthesia: GETA Was an Abrasive Coating Machine Operator used for this Procedure?: Yes Abrasive Coating Machine Operator: Jeremy Gifford Estimated blood loss (mL): 200 IV fluids (mL): 1,000 Pathology: other Condition: stable Disposition: PACU Procedure in detail: Patient was brought to the operating room and placed in the beach chair position on the surgical table. The limb was prepped and draped in standard sterile fashion and a time out was called to identify proper site, proper procedure and IV antibiotics per weight were administered. I began by making a deltopectoral incision from the coracoid to the pectoralis insertion.? Blunt dissection identified the cephalic vein which was retracted laterally.? Blunt dissection was taken down to the 3 sisters which were cauterized.? I then made a full- thickness capsulotomy including the subscapularis. A 1 cm cuff was left for repair.? This was then tagged and the arm was externally rotated and extended and the head was dislocated.? The humeral head was eburnated and there was a very large inferior osteophyte that was removed with an osteotome.? The RTC was intact. An anatomic head cut was made in patient's natural inclination (approximately 132 degree) .? A k-wire was inserted through the cxenter of the humeral head cut and a reamer was used to clean up my cut. I then placed my head protector and turned my attention to the glenoid.? Posterior anterior and superior glenoid retractors were placed and the biceps was tenotomized and labral tissue was removed.? There were extensive anterior osteophytes and the p[osterior glenoid was cyctic. Based on the preoperative CT and templating a guide pin was placed in approximately 5 degrees of retroversion and neutral inclination.? Using a wedge reamer I reamed down to bleeding bone circumferentially and placed the M glenoid drill guide with a 15 deg posterior wedge. I drilled my thress peg holes and my center hole and placed a temoporary glenoid. I was satisfied with the position and the coverage. Anterior and inferior osteophytes were removed. My final glenoid was cemented in place while applying axial compression. Once the cement was dry all excess cement was removed, I returned to the humerus where I trialed a? head. I was satisfied with the height and the stability. I irrigated copiously and then implanted in the final implants. I was satisfied with the stability of the implants. I then irrigated and repaired the subscapularis with fiberwire.? I closed in a layered fashion with absorbable suture and aleks and the patient was placed in a sterile dressing and an abduction sling.?He was extubated brought to recovery room stable condition there were no known complications.
--- NOTE | 2023-05-12 10:26 | MHC.CM.PN ---
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
[2023-05-12 11:19] VITALS: BP 103/56; PULSE 84; RESP 16; TEMP 36.7; O2SAT 95
--- NOTE | 2023-05-12 12:37 | HO.POSTANES ---
Post Anesthesia Evaluation Post Anesthesia Evaluation Date of Service: 05/12/23 Vital Signs: Vital Signs Temp Pulse Resp BP Pulse Ox O2 Del Method 05/12/23 11:19 98.1 F 84 16 103/56 L 95 Room Air 05/12/23 07:21 98.1 F 76 16 134/80 98 Room Air 05/12/23 05:19 18 05/12/23 04:00 96.8 F 67 16 130/76 97 Room Air Anesthesia: Nerve Block and General Endotracheal-GETA Mental Status: Awake Pain Control: Satisfactory Nausea/Vomiting: None Hydration: Adequate Anesthesia-Related Issues: No Anes. Related Issues
--- NOTE | 2023-05-12 12:50 | PM.DS ---
DS: Providers Provider Date of Service: 05/12/23 Primary care physician: Gina May NP DS: Diagnosis Discharge Diagnosis (1) Status post total replacement of right shoulder: Status: Acute DS: Summary Hospital Course Hospital Course: The patient underwent a successful Right total shoulder arthroplasty on 05/11/23, was transferred to PACU and then to the floor to recover. During their stay, their vitals were stable, afebrile 98.1 . Labs were unremarkable, H/H 12.4/37.0. POD 1 he was started on ASA 81 mg tabs bid for DVT ppx, they also received OT services twice a day. PT/OT : Wear sling at all times unless for hygiene and exercises Pendelums three times a day Physical Therapy/ Occupation therapy ---No raising Right arm above 30 degrees, No ER/IR beyond neutral, no Abduction beyond 90 degrees ---No heavy lifting ---Elbow and wrist ROM ok Prior to discharge, his dressing was changed, incision clean dry and intact, new Aquacel dressing applied. The Aquacel dressing should remain intact and dry at all times. Any concerns with the dressing, please contact orthopedic office. No showering. The plan is to be discharged home with vna Time Spent with Patient Time attestation: Total time managing care of this patient today ____ minutes. Discharge coordination time: Less than 30 minutes Quality: Safe Use of Opioids Does Pt have an Active Cancer Diagnosis on the Problem List?: No Quality: Stroke Does the patient have a stroke diagnosis?: No Physical Exam Vital Signs: Vital Signs: Last Vital Signs Temp 98.1 F 05/12/23 11:19 Pulse 84 05/12/23 11:19 Resp 16 05/12/23 11:19 BP 103/56 L 05/12/23 11:19 Pulse Ox 95 05/12/23 11:19 O2 Del Method Room Air 05/12/23 11:19 BMI result Body Mass Index 33.5 DS: Data Data Completed and Pending Pending studies at discharge: Pending at discharge 05/11/23 09:58 Surgical [PTH] Routine Labs on day of discharge: Laboratory Results - last 24 hr 05/12/23 06:34 WBC 9.9 RBC 3.97 L Hgb 12.4 L Hct 37.0 L MCV 93.2 MCH 31.2 MCHC 33.5 RDW 11.9 Plt Count 269 MPV 8.3 L Immature Gran % (Auto) 0.8 H Neut % (Auto) 69.7 Lymph % (Auto) 15.5 L Sheridan % (Auto) 13.5 H Eos % (Auto) 0.3 Baso % (Auto) 0.2 Lymph # (Auto) 1.5 Sheridan # (Auto) 1.3 H Eos # (Auto) 0.0 Baso # (Auto) 0.0 Abs Immat Gran (auto) 0.08 H Absolute Neuts (auto) 6.9 Absolute Nucleated RBC 0.000 Nucleated RBC % (auto) 0.0 Sodium 135 Potassium 3.7 Chloride 101 Carbon Dioxide 26 Anion Gap 12 BUN 17 H Creatinine 0.71 Estim Creat Clear Calc 155.5 Estimated GFR > 60 Fasting Glucose 99 Calcium 9.0 D Discharge Plan Discharge Patient Disposition: Home Health Service Referrals: hvns [Other] - 1 Week Jeremy iGfford PA-C [Physician Shared Services And Outsourcing Manager] - 2 Weeks (05/27/23 1:00 [facility] [place] Jeremy Gifford PA-C) Discharge Medications: New celecoxib 200 mg Capsule 200 mg PO BID 30 Days Qty: 60 0RF acetaminophen 325 mg Tablet 650 mg PO Q6H PRN (Reason: Pain, Mild (Pain Scale 1-3)) 30 Days Qty: 24 0RF docusate sodium 100 mg Capsule 100 mg PO BID 14 Days Qty: 28 0RF aspirin 81 mg Tablet,Chewable 81 mg PO BID 42 Days Qty: 84 0RF hydromorphone 4 mg Tablet 4 mg PO Q4H PRN (Reason: Pain, Moderate(Pain Scale 4-6)) 7 Days Qty: 42 0RF Rx Instructions: Partial Fill upon patient request. oxycodone [OxyContin] 10 mg tablet,oral only,ext.rel.12 hr 10 mg PO Q12H 3 Days Qty: 6 0RF Rx Instructions: Partial Fill upon patient request. Continued Dupixent Syringe 300 mg/2 mL syringe 300 mg subcut Q2W lisinopril 10 mg tablet 10 mg PO QAM indomethacin 50 mg capsule 100 mg PO QAM sildenafil 100 mg tablet 100 mg PO DAILY PRN (Reason: sexual activity) Qty: 10 3RF Discharge Orders: Discharge Order (Routine); Ordered 05/12/23 Ordered By: Jeremy Gifford Diet: Regular diet Activity on Discharge: Use cane or walker Activity Restrictions/Additional Instructions: Wear sling at all times unless for hygiene and exercises Pendelums three times a day Physical Therapy/ Occupation therapy ---No raising Right arm above 30 degrees, No ER/IR beyond neutral, no Abduction beyond 90 degrees ---No heavy lifting ---Elbow and wrist ROM ok Aspirin 81mg twice a day Follow up with orthopedics in 2 weeks Discharge Date/Time: 05/12/23 14:20
--- NOTE | 2023-05-12 13:06 | W.MHC.F2F ---
Service Date Service Date: 05/12/23 Encounter Date of encounter: 05/12/23 Reasons for Services Signs and symptoms assessed: Right shoulder pain, unable to use arm for lifting. Reason for occupational therapy: home safety and mobility, therapeutic exercises, restore joint function, gait/transfer training, ADL training and energy conservation Homebound: Leaving the home is medically contraindicated at this time without the asist of a device and/or another person due th the listed conditions above and below. Reason homebound: unsteady gait / fall risk, poor balance / fall risk and unable to drive Certification: Based on the above findings, I certify that this patient is confined to the home and needs intermittent penitentiary care, physical therapy and/or speech therapy, or continues to need occupational therapy. The patient is under my care, and I have initiated the establishment of the plan of care. The patient will be followed by a physician who will periodically review the plan of care. Time Spent With Patient Time: Total time managing care of this patient today ____ minutes.
== END 2023-05-12 14:20 | disposition home health service (06) ==
LOC: HO.SSS 05:55 → HO.S3 13:07
PROVIDERS: Physician Assistant; PCP Hospitalist; Visit Provider Orthopaedic Surgery
PROC: (CPT 23472; principal; 2023-05-11 07:30)
DX: M19.011 Primary osteoarthritis, right shoulder (principal); I10 Essential (primary) hypertension; M10.9 Gout, unspecified; K57.90 Diverticulosis of intestine, part unspecified, without perforation or abscess without bleeding; K76.0 Fatty (change of) liver, not elsewhere classified; E66.9 Obesity, unspecified; Z68.33 Body mass index [BMI] 33.0-33.9, adult
CPT/HCPCS: 23472; 36415; 73030; 80048; 85025; 86850; 86900; 86901; 87640; 87641; 88304; 88311; 93005; 97166; C1713; C1776; J0690; J1100; J1170; J2371; J2405; J2795

== ENCOUNTER → 2023-05-11 05:55 | Outpatient (BNV) | payer OTHER, SELFPAY | PROVIDERS: PCP Hospitalist; Visit Provider Orthopaedic Surgery | DX: Z47.1 Aftercare following joint replacement surgery (principal); Z96.611 Presence of right artificial shoulder joint | CPT/HCPCS: 23472; 99024 ==

== ENCOUNTER 2023-05-27 13:07 | Outpatient (AMB) | payer OTHER, SELFPAY ==
--- NOTE | 2023-05-27 13:16 | MHC.OFFVIS ---
Intake Intake Visit Reasons: PO RT TSA 05/11/23 NE Intake Note: Lukasz 53 yr old male presents today for his P/O visit for his P/O right TSA DOS 05/11/[address] Caban. States he has very little pain, cont's to wear sling. Denies numbness in hand/fingers. Allergies avocado Allergy (Intermediate, Verified 05/27/23 13:18) itchy throat, shortness of breath banana Allergy (Intermediate, Verified 05/27/23 13:18) itchy throat, shortness of breath tree nut Allergy (Intermediate, Verified 05/27/23 13:18) itchy throat, shortness of breath HPI PO RT TSA 05/11/23 NE HPI Details 53-year-old male who returns to the office today for post-op right TSA, 05/11/[address] Caban. he continues to have minimal pain in his shoulder but is doing well otherwise. He denies any numbness or tingling in hand or fingers. He is wearing the sling as instructed. He has no concerns today. [facility] Medical History (Updated 05/20/23 @ 00:03 by Background Daemon) Arthritis Eczema Diverticulosis Fatty liver Hx of staphylococcal infection Gout HTN (hypertension) Surgical History (Updated 05/20/23 @ 00:03 by Background Daemon) H/O colonoscopy H/O umbilical hernia repair History of surgical removal of ganglion cyst History of ankle surgery Social History Household Members: Spouse and Children Housing: House Are you a primary career representative to a significant other at home: No Do you presently have visiting nurse or other home services: No Alcohol intake: current Alcohol intake frequency: holidays/special occasions only Patient Tobacco Use Status: Never used Tobacco e-Cigarette/Vaping Use: Never Used Second Hand Smoke Exposure: No Substance Use Type: Marijuana Advance Directives Date on File: 05/11/23 service: No Current occupational status: employed Current occupation: [employer] Cognitive needs: No Hearing needs: No Vision needs: Yes (reading glasses) Review of Systems Const All systems reviewed & are unremarkable except as noted in HPI and below Physical Exam Extrem Other: Right shoulder: Incision clean, dry and intact. No erythema. Anterior deltoid sensation intact. Results Reviewed Results Reviewed: Xrays were obtained in the office today and personally reviewed by me of the right shoulder shows intact prosthesis Assessment & Plan Assessment & Plan (1) Status post total replacement of right shoulder: Code(s): Z96.611 - Presence of right artificial shoulder joint Plan [place] removed today, steri strips applied. He will continue to wear the sling for the next 4 weeks and he begins physical therapy on May 31. Physical therapy restrictions will limit his external rotation to neural to protect the subscapularis repair and he will see us back in 4 weeks with x-rays, sooner if needed. Orders: Orders XR shoulder RT min 2V Today M25.511 - Pain in right shoulder Patient Instructions: Scribed for Jeremy Gifford PA-C, by Morris Diaz senior medical billing specialist, on 05/27/2023 at 1:00 PM EST. I, Jeremy Gifford PA-C, have personally reviewed and agree with the information entered by the scribe. Coding Level of Care Code Global (54380) Diagnoses Status post total replacement of right shoulder Z96.611
== END 2023-05-27 13:36 | disposition home or self-care (01) ==
PROVIDERS: Visit Provider Physician Assistant
DX: Z96.611 Presence of right artificial shoulder joint (principal)
CPT/HCPCS: 99024

== ENCOUNTER 2023-05-27 16:36 | Outpatient (REF) | payer OTHER, SELFPAY ==
--- NOTE | ~2023-05-27 | XR_ITS ---
EXAMINATION: XR SHOULDER, RIGHT CLINICAL INFORMATION: Pain. COMPARISON: Radiographs dated 05/11/2023. TECHNIQUE: AP external rotation, Grashey, scapular Y, and axillary views of the right shoulder. FINDINGS: There is stable alignment of a right shoulder arthroplasty. No hardware failure or loosening is seen. The glenohumeral joint is intact. The acromioclavicular and coracoclavicular intervals are normal. No soft tissue calcification or foreign body is seen. There are surgical skin aleks. XR/XR shoulder RT min 2V IMPRESSION: Stable postoperative appearance of a right shoulder arthroplasty, without hardware failure or loosening seen.
== END 2023-05-27 16:37 | disposition home or self-care (01) ==
LOC: HO.HOSX 16:36
PROVIDERS: Visit Provider Physician Assistant
DX: M25.511 Pain in right shoulder (principal); Z47.1 Aftercare following joint replacement surgery; Z96.611 Presence of right artificial shoulder joint
CPT/HCPCS: 73030

== ENCOUNTER 2023-06-21 11:08 | Outpatient (AMB) | payer OTHER, SELFPAY ==
--- NOTE | 2023-06-21 11:11 | A.OFFVIS_ITS ---
Intake Intake Visit Reasons: PO-Right TSA 05/11/23 NE Intake Note: Lukasz garrett 53 year old male presents today for a post operative right TSA, DOS 05/11/23 NE. Xrays updated. Patient reports he is doing great. No pain or discomfort at the moment. He states being a little sore when doing is home exercises. Allergies avocado Allergy (Intermediate, Verified 06/21/23 11:12) itchy throat, shortness of breath banana Allergy (Intermediate, Verified 06/21/23 11:12) itchy throat, shortness of breath tree nut Allergy (Intermediate, Verified 06/21/23 11:12) itchy throat, shortness of breath HPI PO-Right TSA 05/11/23 NE HPI Details 53-year-old male who returns to the [facility] today for post-op right TSA, 05/11/[address] Caban. He states he has no pain or discomfort but he does c/o mild soreness in his shoulder when doing home exercises. He is doing well otherwise and has no concerns today. [facility] Medical History (Updated 05/20/23 @ 00:03 by Background Daemon) Arthritis Eczema Diverticulosis Fatty liver Hx of staphylococcal infection Gout HTN (hypertension) Surgical History (Updated 05/20/23 @ 00:03 by Background Daemon) H/O colonoscopy H/O umbilical hernia repair History of surgical removal of ganglion cyst History of ankle surgery Social History Household Members: Spouse and Children Housing: House Are you a primary care nurse rn to a significant other at home: No Do you presently have visiting nurse or other home services: No Alcohol intake: current Alcohol intake frequency: holidays/special occasions only Patient Tobacco Use Status: Never used Tobacco e-Cigarette/Vaping Use: Never Used Second Hand Smoke Exposure: No Substance Use Type: Marijuana Advance Directives Date on File: 05/11/23 service: No Current occupational status: employed Current occupation: [employer] Cognitive needs: No Hearing needs: No Vision needs: Yes (reading glasses) Review of Systems Const All systems reviewed & are unremarkable except as noted in HPI and below Physical Exam Extrem Other: Right shoulder: Incision well healed. No erythema. Anterior deltoid sensation intact. Results Reviewed Results Reviewed: Xrays were obtained in the office today and personally reviewed by me of the right shoulder shows intact prosthesis Assessment & Plan Assessment & Plan (1) Status post total replacement of right shoulder: Code(s): Z96.611 - Presence of right artificial shoulder joint Plan He is going to continue working with physical therapy. He will begin weening from sling. I would like to see him back in [address] Caban and new x- rays, sooner if needed. Patient Instructions: Scribed for Jeremy Gifford PA-C, by Morris Diaz director medical economics, on 06/21/2023 at 11:15 AM EST. I, Jeremy Gifford PA-C, have personally reviewed and agree with the information entered by the scribe. Coding Level of Care Code Global (59180) Diagnoses Status post total replacement of right shoulder Z96.611
== END 2023-06-21 11:39 | disposition home or self-care (01) ==
PROVIDERS: PCP Hospitalist; Visit Provider Physician Assistant
DX: Z96.611 Presence of right artificial shoulder joint (principal)
CPT/HCPCS: 99024

== ENCOUNTER 2023-06-21 13:00 | Outpatient (REF) | payer OTHER, SELFPAY ==
--- NOTE | ~2023-06-21 | XR_ITS ---
EXAMINATION: XR SHOULDER, RIGHT CLINICAL INFORMATION: Reason for Exam M25.511 - Pain in right shoulder COMPARISON: Shoulder radiographs 05/11/2023 TECHNIQUE: 1 view of the shoulder. FINDINGS: No acute fracture or dislocation. Status post right shoulder arthroplasty. No evidence of hardware fracture or complication. Soft tissues are unremarkable. XR/XR shoulder RT 1V IMPRESSION: Status post right shoulder arthroplasty. No evidence of hardware fracture or complication.
== END 2023-06-21 13:01 | disposition home or self-care (01) ==
LOC: HO.HOSX 13:00
PROVIDERS: Visit Provider Physician Assistant
DX: M25.511 Pain in right shoulder (principal)
CPT/HCPCS: 73020

== ENCOUNTER 2023-08-02 07:30 | Outpatient (REF) | payer OTHER, SELFPAY ==
--- NOTE | ~2023-08-02 | XR_ITS ---
EXAMINATION: XR SHOULDER, RIGHT CLINICAL INFORMATION: Pain in unspecified shoulder COMPARISON: Right shoulder on 06/21/2023 TECHNIQUE: AP external rotation, Grashey and axillary views of the right shoulder. FINDINGS: The patient is status post right shoulder arthroplasty. No evidence of hardware fracture or complication. On the axillary view, there is question of a bony fragment adjacent to the the inferior aspect of the glenoid. This appears to be outside of the glenoid prosthesis. There is no dislocation. XR/XR shoulder RT min 2V IMPRESSION: 1. Status post right shoulder arthroplasty without evidence of hardware fracture or complication. 2. Question of bony fragment adjacent to the inferior aspect of the glenoid.
== END 2023-08-02 07:31 | disposition home or self-care (01) ==
LOC: HO.HOSX 07:30
PROVIDERS: Visit Provider Orthopaedic Surgery
DX: Z47.1 Aftercare following joint replacement surgery (principal); Z96.611 Presence of right artificial shoulder joint
CPT/HCPCS: 73030

== ENCOUNTER 2023-08-02 10:38 | Outpatient (AMB) | payer OTHER, SELFPAY ==
--- NOTE | 2023-08-02 11:01 | A.OFFVIS_ITS ---
Intake Intake Visit Reasons: PO-Right TSA 05/11/23 NE-w/xrays Intake Note: Lukasz is a 53 year old male who presents today for a post operative appointment s/p Right TSA 05/11/23. Patient reports that he is doing well still struggling with lifting with the arm extended Allergies avocado Allergy (Intermediate, Verified 06/21/23 11:12) itchy throat, shortness of breath banana Allergy (Intermediate, Verified 06/21/23 11:12) itchy throat, shortness of breath tree nut Allergy (Intermediate, Verified 06/21/23 11:12) itchy throat, shortness of breath HPI PO-Right TSA 05/11/23 NE-w/xrays HPI Details Lukasz is a 53 year old man presenting ~3 months S/P right TSA. He says he is doing well overall. He denies any pain, but he struggles to lift objects when his arm is extended. He has been working with PT and performing at-home exercises. [facility] Medical History (Updated 05/20/23 @ 00:03 by Background Liaon) Arthritis Eczema Diverticulosis Fatty liver Hx of staphylococcal infection Gout HTN (hypertension) Surgical History (Updated 05/20/23 @ 00:03 by Background Daemon) H/O colonoscopy H/O umbilical hernia repair History of surgical removal of ganglion cyst History of ankle surgery Social History Household Members: Spouse and Children Housing: House Are you a primary career developer to a significant other at home: No Do you presently have visiting nurse or other home services: No Alcohol intake: current Alcohol intake frequency: holidays/special occasions only Patient Tobacco Use Status: Never used Tobacco e-Cigarette/Vaping Use: Never Used Second Hand Smoke Exposure: No Substance Use Type: Marijuana Advance Directives Date on File: 05/11/23 service: No Current occupational status: employed Current occupation: [employer] Cognitive needs: No Hearing needs: No Vision needs: Yes (reading glasses) Review of Systems Const All systems reviewed & are unremarkable except as noted in HPI and below Physical Exam Const General: no acute distress, alert and awake Orientation/consciousness: patient oriented x3 HEENT Head: Yes normocephalic and Yes atraumatic Eyes EOM: EOMs intact bilaterally Resp Effort & Inspection: normal respiratory effort and able to speak in complete sentences Cardio Jugular venous distension: no JVD Skin General skin exam: turgor normal Rashes: no rashes Neuro General: patient oriented x3 Extrem Other: / neg lift off Psych Appearance: grossly normal Affect: normal affect Attitude: cooperative Results Reviewed Results Reviewed: I personally reviewed relevant radiographs Right total shoulder arthroplasty in expected post operative position with no hardware complications or evidence of loosening Assessment & Plan Assessment & Plan (1) Status post total replacement of right shoulder: Code(s): Z96.611 - Presence of right artificial shoulder joint Plan: Doing well with improvement Cont strengthening, ROM Still unable to lift overhead. No lifting > 10 lbs Plan Scribed for Milind Caban MD by Good Dixon, medical or surgical instrument maker, on 08/02/23 at 11:10 AM, EST. Orders: Orders XR shoulder RT min 2V 08/02/23 M25.519 - Pain in unspecified shoulder Coding Level of Care Code Global (04386) Diagnoses Status post total replacement of right shoulder Z96.611
== END 2023-08-02 11:48 | disposition home or self-care (01) ==
PROVIDERS: PCP Hospitalist; Visit Provider Orthopaedic Surgery
DX: Z96.611 Presence of right artificial shoulder joint (principal)
CPT/HCPCS: 99024

== ENCOUNTER 2023-08-27 14:57 | Outpatient (AMB) | payer OTHER, SELFPAY ==
--- NOTE | 2023-08-27 14:59 | A.OFFPC_ITS ---
Vital Signs 08/27/23 15:00 Height 6 ft Weight 258 lb BMI 35.0 BP 130/84 Blood Pressure Location Lt brachial Position Standing Pulse 110 H Pulse Source Pulse Oximeter Temp Source Skin Pulse Oximetry (%) 98 Oxygen Delivery Method Room Air Intake Visit Reasons: Transfer from [facility], medication follow up Street Car Inspector Required: No Allergies avocado Allergy (Intermediate, Verified 08/27/23 15:20) itchy throat, shortness of breath banana Allergy (Intermediate, Verified 08/27/23 15:20) itchy throat, shortness of breath tree nut Allergy (Intermediate, Verified 08/27/23 15:20) itchy throat, shortness of breath Medication List - Last Reconciled 08/27/23 by Shani Chance CNP acetaminophen 650 mg (2 x 325 mg) PO Q6H PRN 30 days amoxicillin 2,000 mg (4 x 500 mg) PO ONCE 1 day aspirin 81 mg PO BID 42 days celecoxib 200 mg PO BID 30 days docusate sodium 100 mg PO BID 14 days dupilumab (Dupixent) 300 mg subcut Q2W hydromorphone 4 mg PO Q4H PRN 7 days indomethacin 100 mg PO QAM lisinopril 10 mg PO QAM oxycodone ER (OxyContin) 10 mg PO Q12H 3 days sildenafil 100 mg PO DAILY PRN Tobacco use date assessed: 08/27/23 Dental Screening Dental Screen Date: 08/27/23 Did you have a dental visit in the last 12 months?: No Did you have a dental problem in the last 6 months where you did not have access to dental care?: No Was dental information given to patient?: Patient has dentist HPI HPI Comments History of Present Illness Details 53-year-old male presents for transfer o f care His former PCP is SEBASTIEN who has no longer with the practice He had blood work done a few months ago. Recent RBC and H&H were slightly low He has history of hypertension and erectile dysfunction He had total replacement of the right shoulder 3 months ago. He is currently doing PT and home exercises. He is unable to lift overhead. He continues to follow [facility] [place] He notes that he takes indomethacin daily for chronic left ankle pain with surgical repair and receives Dupilumab injection every other week for eczema. He is followed by dermatology in [place] He notes that he has not been exercising since he had the right shoulder pain. He plans to start exercising as his shoulder is improving. He notes that he generally makes healthy dietary choices He offers no complaints and denies symptoms at this time [facility] Medical History (Updated 08/27/23 @ 15:45 by Shani Chance CNP) Arthritis Eczema Diverticulosis Fatty liver Hx of staphylococcal infection Gout HTN (hypertension) Surgical History (Updated 05/20/23 @ 00:03 by Lauryn Flannery) H/O colonoscopy H/O umbilical hernia repair History of surgical removal of ganglion cyst History of ankle surgery Social History Household Members: Spouse and Children Housing: House Are you a primary career development associate to a significant other at home: No Do you presently have visiting nurse or other home services: No Alcohol intake: current Alcohol intake frequency: holidays/special occasions only Patient Tobacco Use Status: Never used Tobacco e-Cigarette/Vaping Use: Never Used Second Hand Smoke Exposure: No Substance Use Type: Marijuana Advance Directives Date on File: 05/11/23 service: No Current occupational status: employed 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 1. Little interest or pleasure in doing things: not at all 2. Feeling down, depressed, or hopeless: not at all 3. Trouble falling or staying asleep, or sleeping too much: not at all 4. Feeling tired or having little energy: not at all 5. Poor appetite or overeating: not at all 6. Feeling bad about yourself - or that you are a failure or have let yourself or your family down: not at all 7. Trouble concentrating on things, such as reading the newspaper or watching television: not at all 8. Moving or speaking so slowly that other people could have noticed. Or the opposite - being so fidgety or restless that you have been moving around a lot more than usual: not at all 9. Thoughts that you would be better off or of hurting yourself in some way: not at all Total score: 0 Depression Screening Interpretation: Negative Depression Screening Done: Yes Source: Developed by Drs. Marek L. JaimeeYa gonzales, Shekhar Roberts and colleagues, with an educational beckie from [email or web address]. Thrive Questionnaire Date Thrive assessed: 08/27/23 I am a: Patient What is your living situation today?: I have a steady place to live Within the past 12 months, did the food you bought not last and you didn't have the money to get more?: Never true Within the past 12 months, did you worry whether your food would run out before you got money to buy more?: Never true Do you have trouble paying for medicines?: No Do you have trouble getting transportation to medical appointments?: No Do you have trouble paying your heating and electricity bill?: No Do you have trouble taking care of your child, family member or friend?: No Do you have trouble with day-to-day activities such as bathing, preparing meals, shopping, managing finances, etc.?: No Are you currently unemployed and looking for a job?: No Are you interested in more education?: No AUDIT C Alcohol Use Questionnaire (AUDIT-C) 1. How often do you have a drink containing alcohol?: 2-4 times a month 2. How many drinks containing alcohol do you have on a typical day when you are drinking?: 1 or 2 3. How often do you have six or more drinks on one occasion?: Never Total Score: 2 CARLOS-7 AMB Questionnaire CARLOS-7 Date CARLOS - 7 assessed: 08/27/23 Feeling nervous, anxious, or on edge: 0 = Not at all Not being able to stop or control worryin = Not at all Worrying too much about different things: 0 = Not at all Trouble relaxin = Not at all Being so restless that it is hard to sit still: 0 = Not at all Becoming easily annoyed or irritable: 0 = Not at all Feeling afraid as if something awful might happen: 0 = Not at all Total CARLOS-7 score (0-4 normal; 5-9 mild; 10-14 moderate; 15-21 severe): 0 Source: Developed by Ya Salazar, Shekhar Roberts and colleagues, with an educational beckie from [email or web address]. Review of Systems Const Details: Const Denies chills, Denies fatigue, Denies fever(s), Denies headache(s) and Denies weakness ENT Denies dizziness and Denies headache(s) Card Denies chest pain, Denies lightheadedness, Denies dyspnea and Denies other (Palpitations) Resp Denies cough, Denies dyspnea, Denies wheezing and Denies other ( shortness of breath) GI Denies abdominal pain, Denies melena, Denies hematochezia, Denies change in bowel habits, Denies dyspepsia and Denies nausea Denies hematuria and Denies dysuria Musc Denies abnormal gait, Denies myalgias, Denies arthralgias, Denies numbness and Denies tingling Skin/Breast Denies rash, Denies unusual bruising and Denies wounds Neuro Denies abnormal gait, Denies dizziness, Denies headache(s), Denies memory loss, Denies numbness, Denies Sensory deficit (Neuro), Denies tingling and Denies weakness Psych Denies anxiety, Denies depression, Denies memory loss Endo Denies cold intolerance, Denies fatigue, Denies heat intolerance, Denies polydipsia and Denies polyuria Aller/Immun Denies wheezing Physical exam (Primary Care) Vital Signs: Last Vital Signs Pulse 110 H 08/27/23 15:00 BP 130/84 08/27/23 15:00 Pulse Ox 98 08/27/23 15:00 Oxygen Delivery Method Room Air 08/27/23 15:00 BMI result Body Mass Index 35.0 Tobacco/Smoking Status: Tobacco use Status Tobacco use date assessed 08/27/23 08/27/23 15:07 Patient Tobacco Use Status Never used Tobacco 08/27/23 15:07 e-Cigarette/Vaping Use Never Used 08/27/23 15:07 PHQ-9: PHQ-9 Score PHQ-9: Total score 0 08/27/23 15:08 Depression Screening Interpretation: Negative Thrive Assessment: Date of Thrive Assessment Date Thrive assessed 08/27/23 08/27/23 15:07 Const Other: General: no acute distress and well developed Nutritional Appearance: well nourished Orientation/consciousness: patient oriented x3 HENMT Head: Yes normocephalic and Yes atraumatic Eyes General: appearance normal, both eyes and all related structures Pupils: Equal, round and reactive pupils present EOM: EOMs intact bilaterally Resp Effort & Inspection: normal respiratory effort Auscultation: clear to auscultation bilaterally Cardio Rate: regular rate Rhythm: regular rhythm Heart sounds: S1 normal heart sound present, S2 normal heart sound present, no gallops, no murmurs and no rubs GI Palpation (GI): No Abdominal aortic bruit present, Soft to palpation, nontender, No hepatosplenomegaly present and No Rebound tenderness present Auscultation: normal bowel sounds General: Yes no CVA tenderness Back/Spine/Pelvis Back: no CVA tenderness Cervical Spine: cervical ROM normal and No Cervical spine tenderness Thoracic/Lumbar Spine: thoraco-lumbar ROM normal, No pain with thoraco-lumbar RO M, No thoracic spinal tenderness and No lumbar spinal tenderness Extrem General: Yes normal to inspection, No edema and No calf tenderness Skin General: warm and dry. Normal skin color. Normal skin turgor Lesions: no lesions Rashes: no rashes Trauma: no lacerations or abrasions Wounds: no wounds Nails: normal Neuro General: patient oriented x3, gait normal and no focal neuro deficit Cranial nerves: Yes Equal, round and reactive pupils present Cognition (Neuro): normal cognition Gait exam (Neuro): Normal gait present Sensory Exam: No Sensory deficit (Neuro) Psych Appearance: grossly normal Affect: normal affect Attitude: cooperative Thought process: Normal thought process present Assessment and Plan Assessment & Plan (1) Hypertension, essential, benign: Code(s): I10 - Essential (primary) hypertension Plan: Resting blood pressure is 130/84, within goal of less than 140/90 Continue current treatment regimen Low-sodium diet encouraged Follow-up in 6 weeks for an extended physical exam Return sooner with symptoms or concerns Verbalized understanding and agreed with treatment plan (2) Low HDL (under 40): Code(s): E78.6 - Lipoprotein deficiency Plan: Recent lipid panel level is within normal limits except for slightly low LDL, 37 Advised to limit foods high in saturated fat and avoid foods high trans fat Routine exercise encouraged Will continue to monitor Verbalized understanding and agreed with treatment plan (3) Mild anemia: Code(s): D64.9 - Anemia, unspecified Plan: Recent RBC and H&H slightly low Will recheck CBC and make changes as needed Advised to get blood work done before his next visit Verbalized understanding and agreed with the plan (4) Obesity (BMI 30-39.9): Code(s): E66.9 - Obesity, unspecified Plan: He has not been exercising since he had right shoulder pain. He plans on exercising as his shoulder improves Decline his pastry wrapper/dietitian or weight management referral at this time Healthy diet and routine exercise encouraged Follow-up with symptoms or concerns Verbalized understanding and agreed with treatment plan (5) Status post total replacement of right shoulder: Code(s): Z96.611 - Presence of right artificial shoulder joint Plan: He had total replacement of the right shoulder 3 months ago. He is currently doing PT and home exercises. He is unable to lift overhead. No pain or discomfort at this time Avoid heavy lifting Follow-up with Ortho as planned Return with symptoms or concerns Verbalized understanding and agreed with the plan Orders: Orders Complete Blood Count no Diff Today D64.9 - Anemia, unspecified Medications: Discontinued acetaminophen Discontinued Reason: Doctor's Order 650 mg (2 x 325 mg) PO Q6H 30 days PRN 2 4 tabs 0RF Pain, Mild (Pain Scale 1-3) aspirin Discontinued Reason: Doctor's Order 81 mg PO BID 42 days 84 tabs 0RF celecoxib Discontinued Reason: Doctor's Order 200 mg PO BID 30 days 60 caps 0RF docusate sodium Discontinued Reason: Doctor's Order 100 mg PO BID 14 days 28 caps 0RF hydromorphone Partial Fill upon patient request. Discontinued Reason: Doctor's Order 4 mg PO Q4H 7 days PRN 42 tabs 0RF Pain, Moderate(Pain Scale 4-6) oxycodone ER (OxyContin) Partial Fill upon patient request. Discontinued Reason: Doctor's Order 10 mg PO Q12H 3 days 6 tabs 0RF amoxicillin take 4 capsules 1 hr prior to dental procedure Discontinued Reason: Doctor's Order 2,000 mg (4 x 500 mg) PO ONCE 1 day 4 tabs 3RF Coding Level of Care Code Est Pt Level 3 (76676) Diagnoses Hypertension, essential, benign I10 Low HDL (under 40) E78.6 Mild anemia D64.9 Obesity (BMI 30-39.9) E66.9 Status post total replacement of right shoulder Z96.611
[2023-08-27 15:00] VITALS: BP 130/84; PULSE 110; O2SAT 98; BMI 35.0
== END 2023-08-27 15:41 | disposition home or self-care (01) ==
PROVIDERS: Visit Provider Nurse Practitioner Family
DX: I10 Essential (primary) hypertension (principal); E66.9 Obesity, unspecified; Z68.35 Body mass index [BMI] 35.0-35.9, adult; E78.6 Lipoprotein deficiency; D64.9 Anemia, unspecified; Z96.611 Presence of right artificial shoulder joint
CPT/HCPCS: 99213

== ENCOUNTER 2023-09-13 07:11 | Outpatient (REF) | payer OTHER, SELFPAY ==
--- NOTE | ~2023-09-13 | XR_ITS ---
EXAMINATION: XR SHOULDER, RIGHT CLINICAL INFORMATION: Pain and unspecified shoulder. COMPARISON: 08/02/2023 TECHNIQUE: 3 views of the right shoulder. FINDINGS: Redemonstration of hardware status post right shoulder arthroplasty. Hardware appears intact. Redemonstration on the axillary view of previously identified possible bony fragment adjacent to the inferior aspect of the glenoid which appears to be outside of the prosthesis. Mild degenerative changes with hypertrophic change in the acromioclavicular joint. XR/XR shoulder RT min 2V IMPRESSION: 1. Status post right shoulder arthroplasty. Hardware appears intact. 2. Redemonstration of previously identified possible bony fragment adjacent to the inferior aspect of the glenoid which appears to be outside of the prosthesis.
== END 2023-09-13 07:12 | disposition home or self-care (01) ==
LOC: HO.HOSX 07:11
PROVIDERS: Visit Provider Orthopaedic Surgery
DX: Z96.611 Presence of right artificial shoulder joint (principal)
CPT/HCPCS: 73030

== ENCOUNTER 2023-09-13 10:47 | Outpatient (AMB) | payer OTHER, SELFPAY ==
--- NOTE | 2023-09-13 10:56 | A.OFFVIS_ITS ---
Intake Vital Signs 09/13/23 10:57 Height 6 ft Weight 258 lb BMI 35.0 Intake Visit Reasons: OV- Right TSA 05/11/23 NE-w/xrays Intake Note: Lukasz is a 53 year old male who presents today for a post operative appointment s/p Right TSA 05/11/23. At his last appointment he was given a restriction of no lifting greater than 10 lbs. 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 Allergies avocado Allergy (Intermediate, Verified 08/27/23 15:20) itchy throat, shortness of breath banana Allergy (Intermediate, Verified 08/27/23 15:20) itchy throat, shortness of breath tree nut Allergy (Intermediate, Verified 08/27/23 15:20) itchy throat, shortness of breath HPI OV- Right TSA 05/11/23 NE-w/xrays HPI Details Lukasz is a 53 year old man presenting ~4 months S/P right TSA. He says he is doing well overall. He denies any pain and has been following his activity restrictions. He has been working with PT and performing at-home exercises. He would like to discuss his RTW status. 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 [facility] Medical History (Updated 08/27/23 @ 15:45 by Shani Chance CNP) Arthritis Eczema Diverticulosis Fatty liver Hx of staphylococcal infection Gout HTN (hypertension) Surgical History (Updated 05/20/23 @ 00:03 by Lauryn Flannery) H/O colonoscopy H/O umbilical hernia repair History of surgical removal of ganglion cyst History of ankle surgery Social History Household Members: Spouse and Children Housing: House Are you a primary laboratory animal caretaker to a significant other at home: No Do you presently have visiting nurse or other home services: No Alcohol intake: current Alcohol intake frequency: holidays/special occasions only Patient Tobacco Use Status: Never used Tobacco e-Cigarette/Vaping Use: Never Used Second Hand Smoke Exposure: No Substance Use Type: Marijuana Advance Directives Date on File: 05/11/23 service: No Current occupational status: employed Current occupation: As[employer] Cognitive needs: No Hearing needs: No Vision needs: Yes (reading glasses) Review of Systems Const All systems reviewed & are unremarkable except as noted in HPI and below Physical Exam Vital Signs: BMI result Body Mass Index 35.0 Const General: no acute distress, alert and awake Orientation/consciousness: patient oriented x3 HEENT Head: Yes normocephalic and Yes atraumatic Eyes EOM: EOMs intact bilaterally Resp Effort & Inspection: normal respiratory effort and able to speak in complete sentences Cardio Jugular venous distension: no JVD Skin General skin exam: turgor normal Rashes: no rashes Neuro General: patient oriented x3 Extrem Other: 90/120/30 neg lift off Psych Appearance: grossly normal Affect: normal affect Attitude: cooperative Results Reviewed Results Reviewed: I personally reviewed relevant radiographs. Right shoulder arthroplasty in expected post operative position with no hardware complications or evidence of loosening Assessment & Plan Assessment & Plan (1) Status post total replacement of right shoulder: Code(s): Z96.611 - Presence of right artificial shoulder joint Plan: Ding well No lifting > 20 lbs May return to work Plan Prepared for Milind Caban MD by Good Dixon, medical receptionist assistant, on 09/13/23 at 11:02 AM, EST. Orders: Orders XR shoulder RT min 2V Today M25.519 - Pain in unspecified shoulder Coding Level of Care Code Est Pt Level 3 (40705) Diagnoses Status post total replacement of right shoulder Z96.611
[2023-09-13 10:57] VITALS: BMI 35.0
== END 2023-09-13 11:08 | disposition home or self-care (01) ==
PROVIDERS: PCP Hospitalist; Visit Provider Orthopaedic Surgery
DX: Z47.1 Aftercare following joint replacement surgery (principal); Z96.611 Presence of right artificial shoulder joint
CPT/HCPCS: 99213

== ENCOUNTER 2023-10-04 15:37 | Outpatient (REF) | payer OTHER, SELFPAY ==
[2023-10-04 16:14] LABS: Hematocrit 41.1 % (42.0-52.0); Hemoglobin 14.1 g/dl (14.0-18.0); Mean Corpuscular HGB Conc 34.3 g/dl (31.0-36.0); Mean Corpuscular Hemoglobin 30.1 pg (27.0-33.0); Mean Corpuscular Volume 87.6 fL (80.0-98.0); Mean Platelet Volume 8.3 fL (9.4-12.4); Platelet Count 344 X10*3/uL (160-400); Red Blood Count 4.69 X10*6/uL (4.60-5.80); Red Cell Distribution Width 11.8 % (11.0-16.0); White Blood Count 8.2 X10*3/uL (4.8-10.8)
== END 2023-10-04 15:38 | disposition home or self-care (01) ==
LOC: HO.LAB 15:37
PROVIDERS: PCP Nurse Practitioner Family; Visit Provider Nurse Practitioner Family
DX: D64.9 Anemia, unspecified (principal)
CPT/HCPCS: 36415; 85027

== ENCOUNTER 2023-10-08 14:48 | Outpatient (AMB) | payer OTHER, SELFPAY ==
--- NOTE | 2023-10-08 14:52 | MHC.PC.OV ---
Vital Signs 10/08/23 14:53 Height 6 ft Weight 244 lb BMI 33.1 BP 118/74 Blood Pressure Location Rt brachial Position Sitting Respiration 13 Pulse 98 Pulse Source Pulse Oximeter Temp 97.9 F Temp Source Temporal Artery Scan Pulse Oximetry (%) 98 Oxygen Delivery Method Room Air Intake Visit Reasons: CPE, labs review Edge Baster Required: No Accompanied by: Self / Same As Patient Allergies avocado Allergy (Intermediate, Verified 10/08/23 15:18) itchy throat, shortness of breath banana Allergy (Intermediate, Verified 10/08/23 15:18) itchy throat, shortness of breath tree nut Allergy (Intermediate, Verified 10/08/23 15:18) itchy throat, shortness of breath Medication List - Last Reconciled 10/08/23 by Shani Chance CNP dupilumab (Dupixent) 300 mg subcut Q2W indomethacin 100 mg (2 x 50 mg) PO QAM 30 days lisinopril 10 mg PO QAM sildenafil 100 mg PO DAILY PRN Tobacco use date assessed: 08/27/23 Dental Screening Dental Screen Date: 10/08/23 Did you have a dental visit in the last 12 months?: Yes Did you have a dental problem in the last 6 months where you did not have access to dental care?: No Was dental information given to patient?: Patient has dentist HPI HPI Comments History of Present Illness Details 53-year-old male presents for a complete physical exam and review of recent blood work He has history of hypertension and erectile dysfunction He had total replacement of the right shoulder 3 months ago. He is currently doing PT and home exercises. He continue to make progress with range of motion. He continues to follow [facility] ortho He takes Indomethacin daily of chronic left ankle pain He has been maintaining healthy diet and lost 14 lb in almost 1 month He reports frequent night awakening and urination for the past 2 years. No burning, pain, discharge, or blood with urination He denies acute symptoms at this time Last colonoscopy was in 2020 He notes he took this Shingrix vaccines He states he never get the influenza and has remained influenza free [facility] Medical History (Updated 10/08/23 @ 15:39 by Shani Chance CNP) Arthritis Eczema Diverticulosis Fatty liver Hx of staphylococcal infection Gout HTN (hypertension) Surgical History H/O shoulder replacement H/O colonoscopy H/O umbilical hernia repair History of surgical removal of ganglion cyst History of ankle surgery Social History Household Members: Spouse and Children Housing: House Are you a primary health care social worker to a significant other at home: No Do you presently have visiting nurse or other home services: No Alcohol intake: current Alcohol intake frequency: holidays/special occasions only Patient Tobacco Use Status: Never used Tobacco e-Cigarette/Vaping Use: Never Used Second Hand Smoke Exposure: No Substance Use Type: Marijuana Advance Directives Date on File: 05/11/23 service: No Current occupational status: employed 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 1. Little interest or pleasure in doing things: not at all 2. Feeling down, depressed, or hopeless: not at all 3. Trouble falling or staying asleep, or sleeping too much: not at all 4. Feeling tired or having little energy: not at all 5. Poor appetite or overeating: not at all 6. Feeling bad about yourself - or that you are a failure or have let yourself or your family down: not at all 7. Trouble concentrating on things, such as reading the newspaper or watching television: not at all 8. Moving or speaking so slowly that other people could have noticed. Or the opposite - being so fidgety or restless that you have been moving around a lot more than usual: not at all 9. Thoughts that you would be better off or of hurting yourself in some way: not at all Total score: 0 Depression Screening Interpretation: Negative Depression Screening Done: Yes 85546 - PHQ-9 Billing: Yes Source: Developed by Drs. Marek Hermosillo, Ya Coffman, Shekhar Roberts and colleagues, with an educational beckie from [employer]. Thrive Questionnaire Date Thrive assessed: 08/27/23 AUDIT C Alcohol Use Questionnaire (AUDIT-C) 1. How often do you have a drink containing alcohol?: Monthly or less 2. How many drinks containing alcohol do you have on a typical day when you are drinking?: 1 or 2 3. How often do you have six or more drinks on one occasion?: Never Total Score: 1 CARLOS-7 AMB Questionnaire CARLOS-7 Date CARLOS - 7 assessed: 10/08/23 Feeling nervous, anxious, or on edge: 0 = Not at all Not being able to stop or control worryin = Not at all Worrying too much about different things: 0 = Not at all Trouble relaxin = Not at all Being so restless that it is hard to sit still: 0 = Not at all Becoming easily annoyed or irritable: 0 = Not at all Feeling afraid as if something awful might happen: 0 = Not at all Total CARLOS-7 score (0-4 normal; 5-9 mild; 10-14 moderate; 15-21 severe): 0 Source: Developed by Drs. Marek Hermosillo, Ya Coffman, Shekhar Roberts and colleagues, with an educational beckie from [employer]. CARLOS-7 Assessment Billing CAROLS-7 Assessment Tool: CARLOS-7 Assessment 18785 Review of Systems Const Details: Denies chills, Denies fatigue, Denies fever(s), Denies headache(s) and Denies weakness HEENT Denies change in vision, Denies dizziness, Denies headache(s), Denies hearing loss, Denies nasal congestion, Denies sinus pain, Denies sinus pressure and Denies sore throat Card Denies chest pain, Denies lightheadedness, Denies dyspnea and Denies other (palpitations) Resp Denies cough, Denies dyspnea and Denies wheezing GI Denies abdominal pain, Denies melena, Denies hematochezia, Denies change in bowel habits, Denies dyspepsia and Denies nausea Denies hematuria and Denies dysuria Musc Denies abnormal gait, Denies myalgias, Denies arthralgias, Denies numbness and Denies tingling Skin/Breast Denies rash, Denies unusual bruising and Denies wounds Neuro Denies abnormal gait, Denies dizziness, Denies headache(s), Denies memory loss, Denies numbness, Denies Sensory deficit (Neuro), Denies tingling and Denies weakness Psych Denies anxiety, Denies depression and Denies memory loss Endo Denies cold intolerance, Denies fatigue, Denies heat intolerance, Denies polydipsia and Denies polyuria Mariano/Lymph Denies easy bleeding and Denies easy bruising Aller/Immun Denies wheezing Physical exam (Primary Care) Vital Signs: Last Vital Signs Temp 97.9 F 10/08/23 14:53 Pulse 98 10/08/23 14:53 Resp 13 10/08/23 14:53 BP 118/74 10/08/23 14:53 Pulse Ox 98 10/08/23 14:53 Oxygen Delivery Method Room Air 10/08/23 14:53 BMI result Body Mass Index 33.1 Tobacco/Smoking Status: Tobacco use Status Tobacco use date assessed 08/27/23 10/08/23 14:52 Patient Tobacco Use Status Never used Tobacco 10/08/23 14:52 e-Cigarette/Vaping Use Never Used 10/08/23 14:52 PHQ-9: PHQ-9 Score PHQ-9: Total score 0 10/08/23 15:04 Depression Screening Interpretation: Negative Thrive Assessment: Date of Thrive Assessment Date Thrive assessed 08/27/23 10/08/23 14:52 Const Other: General: no acute distress, well developed, alert and awake Nutritional Appearance: well nourished Orientation/consciousness: patient oriented x3 HENMT Head: Yes normocephalic and Yes atraumatic Ears: hearing grossly normal bilaterally and TM's normal bilaterally General nose exam: Normal external nose present and Normal nares present Mouth: Normal oral and palatal mucosa present and moist mucous membranes Teeth and gingiva: dentition normal Throat: Yes oropharynx normal Eyes Pupils: Equal, round and reactive pupils present and Pupil accommodation reflex normal EOM: EOMs intact bilaterally Neck Neck: Yes normal visual inspection, Yes no lymphadenopathy and Yes trachea midline Thyroid: Thyroid normal Carotids: no bruits Lymphatic: no lymphadenopathy noted Chest Chest palpation & inspection: normal inspection of the chest Resp Effort & Inspection: normal respiratory effort Auscultation: clear to auscultation bilaterally Cardio Rate: regular rate Rhythm: regular rhythm Heart sounds: S1 normal heart sound present, S2 normal heart sound present, no gallops, no murmurs and no rubs Bruits: no abdominal aortic bruits and no carotid bruits GI Palpation (GI): No Abdominal aortic bruit present, Soft to palpation, nontender, No hepatosplenomegaly present and No Rebound tenderness present Auscultation: normal bowel sounds General: Yes no CVA tenderness Back/Spine/Pelvis Back: no CVA tenderness Cervical Spine: cervical ROM normal and No Cervical spine tenderness Thoracic/Lumbar Spine: thoraco-lumbar ROM normal, No pain with thoraco-lumbar ROM, No thoracic spinal tenderness and No lumbar spinal tenderness Skin General: warm and dry. Normal skin color. Normal skin turgor Lesions: no lesions Rashes: no rashes Trauma: no lacerations or abrasions Wounds: no wounds Nails: normal Neuro General: patient oriented x3, gait normal and CN's II-XI intact bilaterally Cranial nerves: Yes Equal, round and reactive pupils present Cognition (Neuro): normal cognition Gait exam (Neuro): Normal gait present Motor exam (neuro): 5/5 motor strength present throughout Sensory Exam: No Sensory deficit (Neuro) Deep tendon reflexes (DTR's): Right patellar reflex intensity grade: 2+ and Left patellar reflex intensity grade: 2+ Extrem General: Yes normal to inspection, No edema and No calf tenderness Psych Appearance: grossly normal Affect: normal affect Attitude: cooperative Thought process: Normal thought process present Assessment and Plan Assessment & Plan (1) Normal physical exam: Code(s): Z00.00 - Encounter for general adult medical examination without abnormal findings Plan: Normal physical exam of 53-year-old male No significant physical restrictions or limitations noted Continue current treatment regimen Healthy diet and routine exercise encouraged Recent labs reviewed with the patient; normal findings Follow-up in 1 month for hypertension or return sooner with symptoms or concerns Verbalized understanding and agreed with treatment plan (2) Chronic pain of left ankle: Code(s): M25.572 - Pain in left ankle and joints of left foot; G89.29 - Other chronic pain Plan: No acute symptoms Have been taking indomethacin 100 mg daily Will discontinue indomethacin for renal protection and order naproxen 500 mg twice daily. Take as prescribed and with food Follow-up with worsening or new symptoms Verbalized understanding and agreed with treatment plan (3) Urinary frequency: Code(s): R35.0 - Frequency of micturition Plan: Reports frequent night awakening and urination for the past 2 years. No burning, pain, discharge, or blood with urination Likely BPH Will check PSA and urinalysis Urology referral made Follow-up with worsening or new symptoms Verbalized understanding and agreed with treatment plan Orders: Orders UA CC w/rflx Micro + Cult Today Z00.00 - Encounter for general adult medical examination without abnormal findings PSA, Ultra Sensitive Today Z00.00 - Encounter for general adult medical examination without abnormal findings Referrals Urology Referral R35.0 - Frequency of micturition Medications: New naproxen 500 mg PO BID PRN 60 tabs 3RF pain Discontinued indomethacin Discontinued Reason: Doctor's Order 100 mg (2 x 50 mg) PO QAM 30 days 60 caps 0RF Coding Level of Care Code Est Pt Prev Care 40-64y(48558) Diagnoses Normal physical exam Z00.00 Chronic pain of left ankle M25.572; G89.29 Urinary frequency R35.0 Additional Codes CARLOS-7 Assessment Billing - CARLOS-7 Assessment Tool: CARLOS-7 Assessment 00621 ([id number])
[2023-10-08 14:53] VITALS: BP 118/74; PULSE 98; RESP 13; TEMP 36.6; O2SAT 98; BMI 33.1
== END 2023-10-08 15:34 | disposition home or self-care (01) ==
PROVIDERS: Visit Provider Nurse Practitioner Family
DX: Z00.00 Encounter for general adult medical examination without abnormal findings (principal); M25.572 Pain in left ankle and joints of left foot; G89.29 Other chronic pain; R35.0 Frequency of micturition
CPT/HCPCS: 99396

== ENCOUNTER 2023-10-19 15:36 | Outpatient (REF) | payer OTHER, SELFPAY ==
[2023-10-19 16:54] LABS: Appearance Urine Clear; Color Urine Yellow; Glucose Urine UA Negative (Negative); Leukocyte Esterase Urine Negative (Negative); Nitrite Urine Negative (Negative); PH 5.5 (5.0-9.0); Urine Blood Negative (Negative); Urine Ketones Trace mg/dL (Negative); Urine Protein Negative (Neg-Trace)
[2023-10-23 18:43] LABS: PSA, Ultra Sensitive 1.76 ng/mL
== END 2023-10-19 15:37 | disposition home or self-care (01) ==
LOC: HO.LAB 15:36
PROVIDERS: Visit Provider Nurse Practitioner Family
DX: Z00.00 Encounter for general adult medical examination without abnormal findings (principal); Z12.5 Encounter for screening for malignant neoplasm of prostate
CPT/HCPCS: 36415; 81003; 84153

== ENCOUNTER 2023-10-19 16:00 | Outpatient (RCR) | payer OTHER, SELFPAY ==
--- NOTE | 2023-05-31 10:48 | MHC.PT.EP ---
[facility] [place] Office [employer] [facility] [place] Office [address] Faith Aguirre [address] [phone] F: [phone] F: [phone] F: [phone] F: [phone] Physical Therapy Plan of Care Date of Evaluation: 05/31/23 Date of Surgery: 05/11/23 Diagnosis: R reverse TSA (w/ subscap repair and biceps tenotomy per op report) on 05/11/23 (RL) Assessment: pt is a 53 y/o male presenting to physical therapy w/ referring diagnosis of R TSA. He underwent a R reverse TSA w/ concomitant biceps tenotomy and subscapularis repair on 05/11/23. Impairments include pain, decreased range of motion, decreased strength, impaired functional mobility, impaired postural awareness, and altered ambulation mechanics. pt is a good candidate for skilled PT due to age, potential remediation of impairments, typical disease/condition progression and prognosis, comorbidities, and motivation. pt would benefit from skilled PT intervention to provide a tailored strengthening and stretching exercise program, functional training, gait training, postural re-training, neuromuscular re-education, modalities as needed for pain, equipment safety demonstration. Frequency and Duration: The patient will be seen 2x/wk for 15 weeks Short Term Goals: pt will be I w/ HEP to promote self-management of condition. pt will improve L shoulder passive flexion to at least 100* to progress per protocol. pt will improve L shoulder external rotation strength to at least 3/5 to progress per protocol. Senior Living Goals: pt will report a statistically significant improvement in self-reported outcome measure, SPADI, to promote return to PLOF. pt will demo proper lifting techniques of 40-50# from floor to waist height x5 reps w/o verbal cueing. pt will be I w/ all upper body ADLs. pt will be I w/ driving standard automobile. Treatment Plan: Modalities to reduce pain, spasms and effusion. Manual therapy to restore motion and function. Therapeutic exercise to improve strength and flexibility. Neuromuscular re-education for posture and balance. Therapeutic activities to return to functional activities of daily living. Electronically signed by: Linda Beth PT, DPT Please sign and return to therapist. Thank you for your referral.
--- NOTE | 2023-10-29 08:33 | MHC.PT.DC ---
[facility] [place] Office [place] Office [place] Office [address] Faith Aguirre 140 [facility] [phone] F: [phone] F: [phone] F: [phone] F: [phone] Physical Therapy Discharge Report Diagnosis: R reverse TSA (w/ subscap repair and biceps tenotomy per op report) on 05/11/23 (RL) Date of Surgery: 05/11/23 Date of Evaluation: 05/31/23 Date of Discharge: 10/29/23 Treatments to Date: 22 Cancellations to Date: 11 No Shows to Date: 0 Discharge Status: Improved Function Independent with HEP Discharge Summary: The patient overall has been reporting little to no shoulder discomfort. He has not been seen since 10/19/23. At that time he was back to work and experiencing some soreness with work-related tasks. He is independent with his home exercise program. He is discharged from this physical therapy plan of care at this time. Electronically signed by: Linda Beth PT, DPT Please sign and return to therapist. Thank you for your referral.
== END 2023-10-29 08:33 | disposition home or self-care (01) ==
LOC: HO.PT 16:00
PROVIDERS: PCP Hospitalist; Visit Provider Physician Assistant
DX: Z96.611 Presence of right artificial shoulder joint (principal)
CPT/HCPCS: 97110; 97112; 97140; 97161; 97530

== ENCOUNTER 2023-12-28 15:51 | Outpatient (AMB) | payer OTHER, SELFPAY ==
[2023-12-28 15:59] VITALS: BP 132/80; PULSE 84; RESP 13; TEMP 36.8; O2SAT 99; BMI 31.1
--- NOTE | 2023-12-28 15:59 | A.OFFPC_ITS ---
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 Accompanied by: Self / Same As Patient Allergies avocado Allergy (Intermediate, Verified 12/28/23 16:35) itchy throat, shortness of breath banana Allergy (Intermediate, Verified 12/28/23 16:35) itchy throat, shortness of breath tree nut Allergy (Intermediate, Verified 12/28/23 16:35) itchy throat, shortness of breath Medication List - Last Reconciled 12/28/23 by Shani Chance CNP dupilumab (Dupixent) 300 mg subcut Q2W lisinopril 10 mg PO QAM naproxen 500 mg PO BID PRN sildenafil 100 mg PO DAILY PRN Tobacco use date assessed: 08/27/23 Dental Screening Dental Screen Date: 10/08/23 HPI HPI Comments History of Present Illness Details 53-year-old male presents for hypertensi on follow-up He admits to taking his medications as prescribed without adverse reactions He admits to making healthy dietary changes, including low-sodium diet He offers no complaints and denies acute symptoms at this time [facility] Medical History Arthritis Eczema Diverticulosis Fatty liver Hx of staphylococcal infection Gout HTN (hypertension) Surgical History H/O shoulder replacement H/O colonoscopy H/O umbilical hernia repair History of surgical removal of ganglion cyst History of ankle surgery Social History Household Members: Spouse and Children Housing: House Are you a primary child adolescent care to a significant other at home: No Do you presently have visiting nurse or other home services: No Alcohol intake: current Alcohol intake frequency: holidays/special occasions only Patient Tobacco Use Status: Never used Tobacco e-Cigarette/Vaping Use: Never Used Second Hand Smoke Exposure: No Substance Use Type: Marijuana Advance Directives Date on File: 09/26/23 service: No Current occupational status: employed 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 Marek Hermosillo, Ya Coffman, Shekhar Roberts and colleagues, with an educational beckie from [employer]. Review of Systems Const Details: Const Denies chills, Denies fatigue, Denies fever(s), Denies headache(s) and Denies we akness ENT Denies dizziness and Denies headache(s) Card Denies chest pain, Denies lightheadedness, Denies dyspnea and Denies other (Palpitations) Resp Denies cough, Denies dyspnea, Denies wheezing and Denies other ( shortness of breath) GI Denies abdominal pain, Denies melena, Denies hematochezia, Denies change in bowel habits, Denies dyspepsia and Denies nausea Denies hematuria and Denies dysuria Musc Denies abnormal gait, Denies myalgias, Denies arthralgias, Denies numbness and Denies tingling Skin/Breast Denies rash, Denies unusual bruising and Denies wounds Neuro Denies abnormal gait, Denies dizziness, Denies headache(s), Denies memory loss, Denies numbness, Denies Sensory deficit (Neuro), Denies tingling and Denies weakness Psych Denies anxiety, Denies depression, Denies memory loss Endo Denies cold intolerance, Denies fatigue, Denies heat intolerance, Denies polydipsia and Denies polyuria Aller/Immun Denies wheezing Physical exam (Primary Care) Vital Signs: Last Vital Signs Temp 98.2 F 12/28/23 15:59 Pulse 84 12/28/23 15:59 Resp 13 12/28/23 15:59 BP 132/80 12/28/23 15:59 Pulse Ox 99 12/28/23 15:59 Oxygen Delivery Method Room Air 12/28/23 15:59 BMI result Body Mass Index 31.1 Tobacco/Smoking Status: Tobacco use Status Tobacco use date assessed 08/27/23 12/28/23 16:08 Patient Tobacco Use Status Never used Tobacco 12/28/23 16:08 e-Cigarette/Vaping Use Never Used 12/28/23 16:08 Thrive Assessment: Date of Thrive Assessment Date Thrive assessed 08/27/23 12/28/23 16:08 Const Other: General: no acute distress and well developed Nutritional Appearance: well nourished Orientation/consciousness: patient oriented x3 [facility] Head: Yes normocephalic and Yes atraumatic Eyes General: appearance normal, both eyes and all related structures Pupils: Equal, round and reactive pupils present EOM: EOMs intact bilaterally Resp Effort & Inspection: normal respiratory effort Auscultation: clear to auscultation bilaterally Cardio Rate: regular rate Rhythm: regular rhythm Heart sounds: S1 normal heart sound present, S2 normal heart sound present, no gallops, no murmurs and no rubs GI Palpation (GI): No Abdominal aortic bruit present, Soft to palpation, nontender, No hepatosplenomegaly present and No Rebound tenderness present Auscultation: normal bowel sounds General: Yes no CVA tenderness Back/Spine/Pelvis Back: no CVA tenderness Cervical Spine: cervical ROM normal and No Cervical spine tenderness Thoracic/Lumbar Spine: thoraco-lumbar ROM normal, No pain with thoraco-lumbar ROM, No thoracic spinal tenderness and No lumbar spinal tenderness Extrem General: Yes normal to inspection, No edema and No calf tenderness Skin General: warm and dry. Normal skin color. Normal skin turgor Neuro General: patient oriented x3, gait normal and no focal neuro deficit Cranial nerves: Yes Equal, round and reactive pupils present Cognition (Neuro): normal cognition Gait exam (Neuro): Normal gait present Sensory Exam: No Sensory deficit (Neuro) Psych Appearance: grossly normal Affect: normal affect Attitude: cooperative Thought process: Normal thought process present Assessment and Plan Assessment & Plan (1) Hypertension, essential, benign: Code(s): I10 - Essential (primary) hypertension Plan: Blood pressure is 132/80, within goal of less than 140/90 Continue current treatment regimen Low-sodium diet encouraged Follow-up in 3 months or return sooner with symptoms or concerns Verbalized understanding and agreed with treatment plan Coding Level of Care Code Est Pt Level 3 (24599) Diagnoses Hypertension, essential, benign I10
== END 2023-12-28 16:46 | disposition home or self-care (01) ==
PROVIDERS: PCP Nurse Practitioner Family; Visit Provider Nurse Practitioner Family
DX: I10 Essential (primary) hypertension (principal)
CPT/HCPCS: 99213

== ENCOUNTER 2024-05-31 13:02 | Outpatient (AMB) | payer OTHER, SELFPAY ==
--- NOTE | 2024-05-31 13:05 | A.OFFPC_ITS ---
Vital Signs 05/31/24 13:09 Height 6 ft Weight 226 lb 8 oz BMI 30.7 BP 118/72 Blood Pressure Location Rt brachial Position Sitting Respiration 16 Pulse 73 Pulse Source Pulse Oximeter Temp 97.9 F Temp Source Oral Pulse Oximetry (%) 100 Oxygen Delivery Method Room Air Intake Visit Reasons: F/U LABS Intake Note: patient her for lab follow up Addiction Social Worker Required: No Allergies avocado Allergy (Intermediate, Verified 05/31/24 13:15) itchy throat, shortness of breath banana Allergy (Intermediate, Verified 05/31/24 13:15) itchy throat, shortness of breath tree nut Allergy (Intermediate, Verified 05/31/24 13:15) itchy throat, shortness of breath Medication List - Last Reconciled 05/31/24 by Shani Chance CNP dupilumab (Dupixent) 300 mg subcut Q2W lisinopril 10 mg PO QAM naproxen 500 mg PO BID PRN sildenafil 100 mg PO DAILY PRN Tobacco use date assessed: 05/31/24 Dental Screening Dental Screen Date: 05/31/24 Did you have a dental visit in the last 12 months?: No Did you have a dental problem in the last 6 months where you did not have access to dental care?: No Was dental information given to patient?: Patient declined HPI HPI Comments History of Present Illness Details 54-year-old male presents for hypertensi on follow-up He admits to taking his medications as prescribed without adverse reactions He offers no complaints and denies acute symptoms at this time [facility] Medical History Arthritis Eczema Diverticulosis Fatty liver Hx of staphylococcal infection Gout HTN (hypertension) Surgical History H/O shoulder replacement H/O colonoscopy H/O umbilical hernia repair History of surgical removal of ganglion cyst History of ankle surgery Social History Household Members: Spouse and Children Housing: House Are you a primary plant health care technician to a significant other at home: No Do you presently have visiting nurse or other home services: No Alcohol intake: current Alcohol intake frequency: holidays/special occasions only Patient Tobacco Use Status: Never used Tobacco e-Cigarette/Vaping Use: Never Used Second Hand Smoke Exposure: No Substance Use Type: Marijuana Advance Directives Date on File: 05/11/23 service: No Current occupational status: employed 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 1. Little interest or pleasure in doing things: not at all 2. Feeling down, depressed, or hopeless: not at all 3. Trouble falling or staying asleep, or sleeping too much: not at all 4. Feeling tired or having little energy: not at all 5. Poor appetite or overeating: not at all 6. Feeling bad about yourself - or that you are a failure or have let yourself or your family down: not at all 7. Trouble concentrating on things, such as reading the newspaper or watching television: not at all 8. Moving or speaking so slowly that other people could have noticed. Or the opposite - being so fidgety or restless that you have been moving around a lot more than usual: not at all 9. Thoughts that you would be better off or of hurting yourself in some way: not at all Total score: 0 Source: Developed by Drs. Marek Hermosillo, Ya Coffman, Shekhar Roberts and colleagues, with an educational beckie from [employer]. Thrive Questionnaire Date Thrive assessed: 08/27/23 I am a: Patient What is your living situation today?: I have a steady place to live Within the past 12 months, did the food you bought not last and you didn't have the money to get more?: Never true Within the past 12 months, did you worry whether your food would run out before you got money to buy more?: Never true Do you have trouble paying for medicines?: I choose not to answer this question Do you have trouble getting transportation to medical appointments?: No Do you have trouble paying your heating and electricity bill?: I choose not to answer this question Do you have trouble taking care of your child, family member or friend?: No Do you have trouble with day-to-day activities such as bathing, preparing meals, shopping, managing finances, etc.?: No Are you currently unemployed and looking for a job?: No Are you interested in more education?: No Please select the resources that you would like help with: None Currently or been in a relationship where the following occur: No concerns reported THRIVE Score: 0 AUDIT C Alcohol Use Questionnaire (AUDIT-C) 1. How often do you have a drink containing alcohol?: Monthly or less 2. How many drinks containing alcohol do you have on a typical day when you are drinking?: 1 or 2 3. How often do you have six or more drinks on one occasion?: Never Total Score: 1 CARLOS-7 AMB Questionnaire CARLOS-7 Date CARLOS - 7 assessed: 10/08/23 Feeling nervous, anxious, or on edge: 0 = Not at all Not being able to stop or control worryin = Not at all Worrying too much about different things: 0 = Not at all Trouble relaxin = Not at all Being so restless that it is hard to sit still: 0 = Not at all Becoming easily annoyed or irritable: 0 = Not at all Feeling afraid as if something awful might happen: 0 = Not at all Total CARLOS-7 score (0-4 normal; 5-9 mild; 10-14 moderate; 15-21 severe): 0 Source: Developed by Drs. Marek Hermosillo, Ya Coffman, Shekhar Roberts and colleagues, with an educational beckie from [employer]. Review of Systems Const Details: Const Denies chills, Denies fatigue, Denies fever(s), Denies headache(s) and Denies weakness ENT Denies dizziness and Denies headache(s) Card Denies chest pain, Denies lightheadedness, Denies dyspnea and Denies other (Palpitations) Resp Denies cough, Denies dyspnea, Denies wheezing and Denies other ( shortness of breath) GI Denies abdominal pain, Denies melena, Denies hematochezia, Denies change in bowel habits, Denies dyspepsia and Denies nausea Denies hematuria and Denies dysuria Musc Denies abnormal gait, Denies myalgias, Denies arthralgias, Denies numbness and Denies tingling Skin/Breast Denies rash, Denies unusual bruising and Denies wounds Neuro Denies abnormal gait, Denies dizziness, Denies headache(s), Denies memory loss, Denies numbness, Denies Sensory deficit (Neuro), Denies tingling and Denies weakness Psych Denies anxiety, Denies depression, Denies memory loss Endo Denies cold intolerance, Denies fatigue, Denies heat intolerance, Denies polydipsia and Denies polyuria Aller/Immun Denies wheezing Physical exam (Primary Care) Vital Signs: Last Vital Signs Temp 97.9 F 05/31/24 13:09 Pulse 73 05/31/24 13:09 Resp 16 05/31/24 13:09 BP 118/72 05/31/24 13:09 Pulse Ox 100 05/31/24 13:09 Oxygen Delivery Method Room Air 05/31/24 13:09 BMI result Body Mass Index 30.7 Tobacco/Smoking Status: Tobacco use Status Tobacco use date assessed 05/31/24 05/31/24 13:12 Patient Tobacco Use Status Never used Tobacco 05/31/24 13:07 e-Cigarette/Vaping Use Never Used 05/31/24 13:07 PHQ-9: PHQ-9 Score PHQ-9: Total score 0 05/31/24 13:07 Thrive Assessment: Date of Thrive Assessment Date Thrive assessed 08/27/23 05/31/24 13:07 Currently or been in a relationship where the following occur: No concerns reported Const Other: General: no acute distress and well developed Nutritional Appearance: well nourished Orientation/consciousness: patient oriented x3 HENMT Head: Yes normocephalic and Yes atraumatic Eyes General: appearance normal, both eyes and all related structures Pupils: Equal, round and reactive pupils present EOM: EOMs intact bilaterally Resp Effort & Inspection: normal respiratory effort Auscultation: clear to auscultation bilaterally Cardio Rate: regular rate Rhythm: regular rhythm Heart sounds: S1 normal heart sound present, S2 normal heart sound present, no gallops, no murmurs and no rubs GI Palpation (GI): No Abdominal aortic bruit present, Soft to palpation, nontender, No hepatosplenomegaly present and No Rebound tenderness present Auscultation: normal bowel sounds General: Yes no CVA tenderness Back/Spine/Pelvis Back: no CVA tenderness Extrem General: Yes normal to inspection, No edema and No calf tenderness Skin General: warm and dry. Normal skin color. Normal skin turgor Neuro General: patient oriented x3, gait normal and no focal neuro deficit Cranial nerves: Yes Equal, round and reactive pupils present Cognition (Neuro): normal cognition Gait exam (Neuro): Normal gait present Sensory Exam: No Sensory deficit (Neuro) Psych Appearance: grossly normal Affect: normal affect Attitude: cooperative Thought process: Normal thought process present Coding Level of Care Code Est Pt Level 3 (22686) Diagnoses Hypertension, essential, benign I10 Assessment & Plan Assessment & Plan (1) Hypertension, essential, benign: Code(s): I10 - Essential (primary) hypertension Category: Medical Plan: Blood pressure is 118/72, within goal of less than 140/90 Continue current treatment regimen Low-sodium diet encouraged Follow-up in 3 months or sooner with symptoms or concerns Verbalized understanding and agreed with the treatment plan Medications: Refilled lisinopril 10 mg PO QAM 90 tabs 1RF
[2024-05-31 13:09] VITALS: BP 118/72; PULSE 73; RESP 16; TEMP 36.6; O2SAT 100; BMI 30.7
== END 2024-05-31 13:28 | disposition home or self-care (01) ==
PROVIDERS: PCP Nurse Practitioner Family; Visit Provider Nurse Practitioner Family
DX: I10 Essential (primary) hypertension (principal)

== ENCOUNTER → 2024-05-31 13:02 | Outpatient (BNVA) | payer OTHER, SELFPAY | PROVIDERS: PCP Nurse Practitioner Family; Visit Provider Nurse Practitioner Family ==

== ENCOUNTER 2024-09-21 06:07 | Outpatient (REF) | payer OTHER, SELFPAY ==
[2024-09-21 06:21] LABS: MANUAL DIFF FLAG NO
[2024-09-21 07:24] LABS: Basophils Percent Auto 0.7 % (0-2); Eosinophils Absolute Auto 0.2 X10*3/uL (0.0-0.4); Eosinophils Percent Auto 2.6 % (0-4); Hematocrit 41.9 % (42.0-52.0); Hemoglobin 14.2 g/dl (14.0-18.0); Imm Gran Abs Auto 0.06 X10*3/uL (0.00-0.03); Lymphocytes Absolute Auto 1.4 X10*3/uL (1.2-4.9); Mean Corpuscular HGB Conc 33.9 g/dl (31.0-36.0); Mean Corpuscular Volume 91.5 fL (80.0-98.0); Mean Platelet Volume 8.2 fL (9.4-12.4); Monocytes Absolute Auto 0.6 X10*3/uL (0.1-1.2); Monocytes Percent Auto 11.1 % (2-11); Neutrophils Absolute Auto 3.5 x10*3/uL (2.0-8.3); Neutrophils Percent Auto 60.6 % (45-73); Platelet Count 324 X10*3/uL (160-400); Red Blood Count 4.58 X10*6/uL (4.60-5.80); Red Cell Distribution Width 11.8 % (11.0-16.0); White Blood Count 5.8 X10*3/uL (4.8-10.8)
[2024-09-21 07:43] LABS: Creatinine Urine 153.36 mg/dL; Microalbum/Creatinine Ratio Ur 4.5 ug/mg cr (<30)
[2024-09-21 07:52] LABS: Alanine Aminotransferase 20 U/L (0-40); Albumin Level 4.4 g/dL (3.5-5.0); Alkaline Phosphatase 61 U/L (39-117); Anion Gap 11 (12-20); Aspartate Amino Transferase 21 U/L (5-37); Bilirubin Total 0.4 mg/dL (0.0-1.0); Blood Urea Nitrogen 20 mg/dL (9-16); Calcium 9.7 mg/dL (8.4-10.2); Carbon Dioxide 28 mmol/L (22-29); Chloride 102 mmol/L (96-108); Cholesterol 166 mg/dL (<200); Estimated Glomerular Filt Rate > 60; Glucose Fasting 89 mg/dL (60-99); HDL Cholesterol 43 mg/dL (>40); LDL Cholesterol Calculated 114 mg/dL (<100); Sodium 137 mmol/L (135-145); Total Protein 7.9 g/dL (6.5-8.0); Triglycerides 47 mg/dL (<150)
[2024-09-21 08:08] LABS: TSH reflex Free T4 0.85 uIU/mL (0.32-4.0)
== END 2024-09-21 06:08 | disposition home or self-care (01) ==
LOC: HO.LAB 06:07
PROVIDERS: PCP Nurse Practitioner Family; Visit Provider Nurse Practitioner Family
DX: I10 Essential (primary) hypertension (principal); E78.1 Pure hyperglyceridemia; E78.6 Lipoprotein deficiency
CPT/HCPCS: 36415; 80053; 80061; 82043; 82570; 84443; 85025

== ENCOUNTER 2024-10-16 14:51 | Outpatient (AMB) | payer OTHER, SELFPAY ==
--- NOTE | 2024-10-16 14:55 | A.OFFPC_ITS ---
Vital Signs 10/16/24 15:14 Height 6 ft Weight 227 lb BMI 30.8 BP 112/70 Blood Pressure Location Rt brachial Position Sitting Respiration 16 Pulse 88 Pulse Source Pulse Oximeter Temp 97.7 F Temp Source Oral Pulse Oximetry (%) 98 Oxygen Delivery Method Room Air Intake Visit Reasons: F/U HTN and Labs Intake Note: patient here for follow up on HTN and labs Animal Hospital Clerk Required: No Allergies avocado Allergy (Intermediate, Verified 10/16/24 15:14) itchy throat, shortness of breath banana Allergy (Intermediate, Verified 10/16/24 15:14) itchy throat, shortness of breath tree nut Allergy (Intermediate, Verified 10/16/24 15:14) itchy throat, shortness of breath Tobacco use date assessed: 10/16/24 Dental Screening Dental Screen Date: 10/16/24 Did you have a dental visit in the last 12 months?: No Did you have a dental problem in the last 6 months where you did not have access to dental care?: No Was dental information given to patient?: Patient has dentist HPI HPI Comments History of Present Illness Details 54-year-old male presents for hypertensi on and recent labs review follow-up. He admits to taking his medications as prescribed without adverse reactions. He admits to making healthy dietary choices, including low-sodium diet. He exercises routinely. His blood pressures been controlled for quite a while. Therefore, he wants to slowly wean off lisinopril. He offers no complaints and denies acute symptoms at this time. [facility] Medical History Arthritis Eczema Diverticulosis Fatty liver Hx of staphylococcal infection Gout HTN (hypertension) Surgical History H/O shoulder replacement H/O colonoscopy H/O umbilical hernia repair History of surgical removal of ganglion cyst History of ankle surgery Social History Household Members: Spouse and Children Housing: House Are you a primary career development facilitator to a significant other at home: No Do you presently have visiting nurse or other home services: No Alcohol intake: current Alcohol intake frequency: holidays/special occasions only Patient Tobacco Use Status: Never used Tobacco e-Cigarette/Vaping Use: Never Used Second Hand Smoke Exposure: No Substance Use Type: Marijuana Advance Directives Date on File: 05/11/23 service: No Current occupational status: employed 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 Cognitive needs: No Hearing needs: No Vision needs: Yes (reading glasses) Questionnaire Thrive Questionnaire Date Thrive assessed: 08/27/23 I am a: Patient What is your living situation today?: I have a steady place to live Within the past 12 months, did the food you bought not last and you didn't have the money to get more?: Never true Within the past 12 months, did you worry whether your food would run out before you got money to buy more?: Never true Do you have trouble paying for medicines?: No Do you have trouble getting transportation to medical appointments?: No Do you have trouble paying your heating and electricity bill?: No Do you have trouble taking care of your child, family member or friend?: No Do you have trouble with day-to-day activities such as bathing, preparing meals, shopping, managing finances, etc.?: No Are you currently unemployed and looking for a job?: No Are you interested in more education?: No Please select the resources that you would like help with: None Currently or been in a relationship where the following occur: No concerns reported THRIVE Score: 0 AUDIT C Alcohol Use Questionnaire (AUDIT-C) 1. How often do you have a drink containing alcohol?: Monthly or less 2. How many drinks containing alcohol do you have on a typical day when you are drinking?: 3 or 4 3. How often do you have six or more drinks on one occasion?: Never Total Score: 2 CARLOS-7 AMB Questionnaire CARLOS-7 Date CARLOS - 7 assessed: 10/08/23 Feeling nervous, anxious, or on edge: 0 = Not at all Not being able to stop or control worryin = Not at all Worrying too much about different things: 0 = Not at all Trouble relaxin = Not at all Being so restless that it is hard to sit still: 0 = Not at all Becoming easily annoyed or irritable: 0 = Not at all Feeling afraid as if something awful might happen: 0 = Not at all Total CARLOS-7 score (0-4 normal; 5-9 mild; 10-14 moderate; 15-21 severe): 0 Source: Developed by Drs. Marek Hermosillo, Ya Coffman, Shekhar Roberts and colleagues, with an educational beckie from [employer]. Review of Systems Const Details: Const Denies chills, Denies fatigue, Denies fever(s), Denies headache(s) and Denies weakness ENT Denies dizziness and Denies headache(s) Card Denies chest pain, Denies lightheadedness, Denies dyspnea and Denies other (Palpitations) Resp Denies cough, Denies dyspnea, Denies wheezing and Denies other ( shortness of breath) GI Denies abdominal pain, Denies melena, Denies hematochezia, Denies change in bowel habits, Denies dyspepsia and Denies nausea Denies hematuria and Denies dysuria Musc Denies abnormal gait, Denies myalgias, Denies arthralgias, Denies numbness and Denies tingling Skin/Breast Denies rash, Denies unusual bruising and Denies wounds Neuro Denies abnormal gait, Denies dizziness, Denies headache(s), Denies memory loss, Denies numbness, Denies Sensory deficit (Neuro), Denies tingling and Denies weakness Psych Denies anxiety, Denies depression, Denies memory loss Endo Denies cold intolerance, Denies fatigue, Denies heat intolerance, Denies polydipsia and Denies polyuria Aller/Immun Denies wheezing Physical exam (Primary Care) Tobacco/Smoking Status: Tobacco use Status Tobacco use date assessed 05/31/24 05/31/24 13:12 Patient Tobacco Use Status Never used Tobacco 05/31/24 13:07 e-Cigarette/Vaping Use Never Used 05/31/24 13:07 Thrive Assessment: Date of Thrive Assessment Date Thrive assessed 08/27/23 05/31/24 13:07 Currently or been in a relationship where the following occur: No concerns reported Const Other: General: no acute distress and well developed Nutritional Appearance: well nourished Orientation/consciousness: patient oriented x3 HENMT Head: Yes normocephalic and Yes atraumatic Eyes General: appearance normal, both eyes and all related structures Pupils: Equal, round and reactive pupils present EOM: EOMs intact bilaterally Resp Effort & Inspection: normal respiratory effort Auscultation: clear to auscultation bilaterally Cardio Rate: regular rate Rhythm: regular rhythm Heart sounds: S1 normal heart sound present, S2 normal heart sound present, no gallops, no murmurs and no rubs GI Palpation (GI): No Abdominal aortic bruit present, Soft to palpation, nontender, No hepatosplenomegaly present and No Rebound tenderness present Auscultation: normal bowel sounds General: Yes no CVA tenderness Back/Spine/Pelvis Back: no CVA tenderness Cervical Spine: cervical ROM normal and No Cervical spine tenderness Thoracic/Lumbar Spine: thoraco-lumbar ROM normal, No pain with thoraco-lumbar ROM, No thoracic spinal tenderness and No lumbar spinal tenderness Extrem General: Yes normal to inspection, No edema and No calf tenderness Skin General: warm and dry. Normal skin color. Normal skin turgor Neuro General: patient oriented x3, gait normal and no focal neuro deficit Cranial nerves: Yes Equal, round and reactive pupils present Cognition (Neuro): normal cognition Gait exam (Neuro): Normal gait present Sensory Exam: No Sensory deficit (Neuro) Psych Appearance: grossly normal Affect: normal affect Attitude: cooperative Thought process: Normal thought process present Coding Level of Care Code Est Pt Level 3 (89937) Diagnoses Hypertension, essential, benign I10 Elevated LDL cholesterol level E78.00 Assessment & Plan Assessment & Plan (1) Hypertension, essential, benign: Code(s): I10 - Essential (primary) hypertension Category: Medical Plan: Resting blood pressure is 118/72, within goal of less than 130/80. He wants to slowly weaned off lisinopril since he has been making healthy dietary choices and his blood pressure has been controlled. Will decrease lisinopril to 5 mg daily; advised to take as prescribed. Low-sodium diet encouraged. Will continue to monitor. Follow-up within a month for an extended physical exam or sooner with symptoms or concerns. Verbalized understanding and agreed with treatment plan. (2) Elevated LDL cholesterol level: Code(s): E78.00 - Pure hypercholesterolemia, unspecified Category: Medical Plan: Recent LDL level is slightly elevated, 114. Previous level was 119. Advised to limit foods high in saturated fat and avoid foods high in trans fat. Routine exercise encouraged. Will monitor LDL level periodically or with related symptoms or concerns. Verbalized understanding and agreed with treatment plan. Medications: New lisinopril 5 mg PO DAILY 30 days 30 tabs 3RF Discontinued lisinopril Discontinued Reason: Doctor's Order 10 mg PO QAM 90 tabs 1RF
[2024-10-16 15:14] VITALS: BP 112/70; PULSE 88; RESP 16; TEMP 36.5; O2SAT 98; BMI 30.8
--- OUTSIDE RECORDS SUMMARY | 2024-10-16 17:41 | XMS_ITS | Clinical Summary ---
Author Organization [facility] Address [address] [place] [address] Care Team Providers Care Program Manager Rn Name Role Phone Unavailable Primary Care Provider Unavailabl e Allergies No known active allergies Medications Medication Sig Dispensed Refills Start Date End Date Status lisinopril (PRINIVIL,ZESTRIL) tablet 10 mg 0 03/30/2016 Active metoprolol succinate (TOPROL-XL) 24 hr tablet 25 mg 0 04/14/2016 Active citalopram (CELEXA) 20 MG tablet 0 02/23/2016 Active doxycycline (VIBRAMYCIN) 100 MG capsule 0 06/30/2016 Active ivermectin (STROMECTOL) 3 MG tablet 0 07/26/2016 Active minocycline (MINOCIN,DYNACIN) 50 MG capsule 0 09/03/2016 Active Active Problems Problem Noted Date Diagnosed Date Consultation without specific complaint 05/05/20 16 Social History Tobacco Use Types Packs/Day Years Used Date Smoking Tobacco: Never Alcohol Use Standard Drinks/Week Comments Not Asked 0 (1 standard drink = 0.6 oz pur e alcohol) Sex and Gender Information Value Date Recorded Sex Assigned at Not on file Gender Identity Not on file Sexual Orientation Not on file Plan of Treatment Health Maintenance Due Date Last Done Comments Hepatitis B Vaccines (1 of 3 - 3-dose series) 1969 Hepatitis C Screening 1969 COVID-19 Vaccine (#1) 1969 Depression Screening 1981 Preventative Health Evaluation 1987 DTap / Tdap / Td (1 - Tdap) 1988 Colon Cancer Screening (Colonoscopy) 2014 Shingrix-Zoster Vaccine (1 of 2) 2019 Influenza Vaccine (#1) 2024 Pneumococcal Vaccine Aged Out No long er eligible based on patient's age to complete this topic RSV Ped < 20 months Aged Out No longe r eligible based on patient's age to complete this topic
== END 2024-10-16 15:31 | disposition home or self-care (01) ==
PROVIDERS: PCP Nurse Practitioner Family; Visit Provider Nurse Practitioner Family
DX: I10 Essential (primary) hypertension (principal); E78.00 Pure hypercholesterolemia, unspecified

== ENCOUNTER 2024-12-08 13:01 | Outpatient (AMB) | payer OTHER, SELFPAY ==
--- NOTE | 2024-12-08 13:07 | A.OFFPC_ITS ---
Vital Signs 12/08/24 13:12 12/08/24 13:43 Height 6 ft Weight 227 lb 4 oz BMI 30.8 BP 123/76 118/74 Blood Pressure Location Rt brachial Rt brachial Position Sitting Sitting Respiration 16 Pulse 77 Pulse Source Pulse Oximeter Temp 98.2 F Temp Source Oral Pulse Oximetry (%) 98 Oxygen Delivery Method Room Air Intake Visit Reasons: CPE within a month Intake Note: patient here for CPE Patient Admitting Representative Required: No Allergies avocado Allergy (Intermediate, Verified 12/08/24 13:35) itchy throat, shortness of breath banana Allergy (Intermediate, Verified 12/08/24 13:35) itchy throat, shortness of breath tree nut Allergy (Intermediate, Verified 12/08/24 13:35) itchy throat, shortness of breath Medication List - Last Reconciled 12/08/24 by Shani Chance CNP dupilumab (Dupixent) 300 mg subcut Q2W lisinopril 5 mg PO DAILY 30 days naproxen 500 mg PO BID PRN sildenafil 100 mg PO DAILY PRN Tobacco use date assessed: 12/08/24 Dental Screening Dental Screen Date: 12/08/24 Did you have a dental visit in the last 12 months?: No Did you have a dental problem in the last 6 months where you did not have access to dental care?: No Was dental information given to patient?: Patient has dentist HPI HPI Comments History of Present Illness Details 54-year-old male presents for an extende d physical exam. He admits to taking his medications as prescribed without adverse reactions. Acute issue(s) - History of left ankle surgery x 2. Rep orts intermittent left ankle discomfort with ambulating long distances. No acute symptoms at this time. He requests a note to park his vehicle short distance for his employer. Past Medical History - Hypertension, elevated LDL, erectile d ysfunction Social History - Nonsmoker. Does not vape. Drinks 3-4 beers every 2-6 months. Denies recreational drug use - Has been making healthy dietary choice s. Active but does not exercise. Generally sleep well Health maintenance - Last eye exam was a few years ago. 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 for routine eye exam, - Last dental visit was about a years ag o; encouraged to schedule an appointment with his dentist for routine dental care - Last Tdap was in 05/19/2021 - He notes that he is up-to-date on the shingles vaccines - Has not been vaccinated for the flu season; declines vaccination - Last colonoscopy was in 11/19/2020 with [facility] Medical History Arthritis Eczema Diverticulosis Fatty liver Hx of staphylococcal infection Gout HTN (hypertension) Surgical History H/O shoulder replacement H/O colonoscopy H/O umbilical hernia repair History of surgical removal of ganglion cyst History of ankle surgery Social History Household Members: Spouse and Children Housing: House Are you a primary wound care rn to a significant other at home: No Do you presently have visiting nurse or other home services: No Alcohol intake: current Alcohol intake frequency: holidays/special occasions only Patient Tobacco Use Status: Never used Tobacco e-Cigarette/Vaping Use: Never Used Second Hand Smoke Exposure: No Substance Use Type: Marijuana Advance Directives Date on File: 05/11/23 service: No Current occupational status: employed 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 1. Little interest or pleasure in doing things: not at all 2. Feeling down, depressed, or hopeless: not at all 3. Trouble falling or staying asleep, or sleeping too much: not at all 4. Feeling tired or having little energy: not at all 5. Poor appetite or overeating: not at all 6. Feeling bad about yourself - or that you are a failure or have let yourself or your family down: not at all 7. Trouble concentrating on things, such as reading the newspaper or watching television: not at all 8. Moving or speaking so slowly that other people could have noticed. Or the opposite - being so fidgety or restless that you have been moving around a lot more than usual: not at all 9. Thoughts that you would be better off or of hurting yourself in some w ay: not at all Total score: 0 Depression Screening Interpretation: Negative Depression Screening Done: Yes 27153 - PHQ-9 Billing: Yes Source: Developed by Drs. Marek Hermosillo, Ya Coffman, Shekhar Roberts and colleagues, with an educational beckie from [employer]. Thrive Questionnaire Date Thrive assessed: 12/08/24 I am a: Patient What is your living situation today?: I have a steady place to live Within the past 12 months, did the food you bought not last and you didn't have the money to get more?: Never true Within the past 12 months, did you worry whether your food would run out before you got money to buy more?: Never true Do you have trouble paying for medicines?: No Do you have trouble getting transportation to medical appointments?: No Do you have trouble paying your heating and electricity bill?: No Do you have trouble taking care of your child, family member or friend?: No Do you have trouble with day-to-day activities such as bathing, preparing meals, shopping, managing finances, etc.?: No Are you currently unemployed and looking for a job?: No Are you interested in more education?: No Please select the resources that you would like help with: None Currently or been in a relationship where the following occur: No concerns reported THRIVE Score: 0 AUDIT C Alcohol Use Questionnaire (AUDIT-C) 1. How often do you have a drink containing alcohol?: Monthly or less 2. How many drinks containing alcohol do you have on a typical day when you are drinking?: 3 or 4 3. How often do you have six or more drinks on one occasion?: Never Total Score: 2 Score Reviewed/Action Taken: Yes CARLOS-7 AMB Questionnaire CARLOS-7 Date CARLOS - 7 assessed: 12/08/24 Feeling nervous, anxious, or on edge: 0 = Not at all Not being able to stop or control worryin = Not at all Worrying too much about different things: 0 = Not at all Trouble relaxin = Not at all Being so restless that it is hard to sit still: 0 = Not at all Becoming easily annoyed or irritable: 0 = Not at all Feeling afraid as if something awful might happen: 0 = Not at all Total CARLOS-7 score (0-4 normal; 5-9 mild; 10-14 moderate; 15-21 severe): 0 Source: Developed by Drs. Marek Hermosillo, Ya Coffman, Shekhar Roberts and colleagues, with an educational beckie from [employer]. CARLOS-7 Assessment Billing CARLOS-7 Assessment Tool: CARLOS-7 Assessment 66470 Review of Systems Const Details: Denies chills, Denies fatigue, Denies fever(s), Denies headache(s) and Denies weakness HEENT Denies change in vision, Denies dizziness, Denies headache(s), Denies hearing loss, Denies nasal congestion, Denies sinus pain, Denies sinus pressure and Denies sore throat Card Denies chest pain, Denies lightheadedness, Denies dyspnea and Denies other (palpitations) Resp Denies cough, Denies dyspnea and Denies wheezing GI Denies abdominal pain, Denies melena, Denies hematochezia, Denies change in bowel habits, Denies dyspepsia and Denies nausea Denies hematuria and Denies dysuria Musc Denies abnormal gait, Denies myalgias, Denies arthralgias, Denies numbness and Denies tingling Skin/Breast Denies rash, Denies unusual bruising and Denies wounds Neuro Denies abnormal gait, Denies dizziness, Denies headache(s), Denies memory loss, Denies numbness, Denies Sensory deficit (Neuro), Denies tingling and Denies weakness Psych Denies anxiety, Denies depression and Denies memory loss Endo Denies cold intolerance, Denies fatigue, Denies heat intolerance, Denies polydipsia and Denies polyuria Mariano/Lymph Denies easy bleeding and Denies easy bruising Aller/Immun Denies wheezing Physical exam (Primary Care) Vital Signs: Last Vital Signs Temp 98.2 F 12/08/24 13:12 Pulse 77 12/08/24 13:12 Resp 16 12/08/24 13:12 BP 123/76 12/08/24 13:12 Pulse Ox 98 12/08/24 13:12 Oxygen Delivery Method Room Air 12/08/24 13:12 BMI result Body Mass Index 30.8 Tobacco/Smoking Status: Tobacco use Status Tobacco use date assessed 12/08/24 12/08/24 13:15 Patient Tobacco Use Status Never used Tobacco 12/08/24 13:15 e-Cigarette/Vaping Use Never Used 12/08/24 13:15 PHQ-9: PHQ-9 Score PHQ-9: Total score 0 12/08/24 13:15 Depression Screening Interpretation: Negative Thrive Assessment: Date of Thrive Assessment Date Thrive assessed 12/08/24 12/08/24 13:15 Currently or been in a relationship where the following occur: No concerns reported Const Other: General: no acute distress, well developed, alert and awake Nutritional Appearance: well nourished Orientation/consciousness: patient oriented x3 [facility] Head: Yes normocephalic and Yes atraumatic Ears: hearing grossly normal bilaterally and TM's normal bilaterally General nose exam: Normal external nose present and Normal nares present Mouth: Normal oral and palatal mucosa present and moist mucous membranes Teeth and gingiva: dentition normal Throat: Yes oropharynx normal Eyes Pupils: Equal, round and reactive pupils present and Pupil accommodation reflex normal EOM: EOMs intact bilaterally Neck Neck: Yes normal visual inspection, Yes no lymphadenopathy and Yes trachea midline Thyroid: Thyroid normal Carotids: no bruits Lymphatic: no lymphadenopathy noted Chest Chest palpation & inspection: normal inspection of the chest Resp Effort & Inspection: normal respiratory effort Auscultation: clear to auscultation bilaterally Cardio Rate: regular rate Rhythm: regular rhythm Heart sounds: S1 normal heart sound present, S2 normal heart sound present, no gallops, no murmurs and no rubs Bruits: no abdominal aortic bruits and no carotid bruits GI Palpation (GI): No Abdominal aortic bruit present, Soft to palpation, nontender, No hepatosplenomegaly present and No Rebound tenderness present Auscultation: normal bowel sounds General: Yes no CVA tenderness Back/Spine/Pelvis Back: no CVA tenderness Cervical Spine: cervical ROM normal and No Cervical spine tenderness Thoracic/Lumbar Spine: thoraco-lumbar ROM normal, No pain with thoraco-lumbar ROM, No thoracic spinal tenderness and No lumbar spinal tenderness Skin General: warm and dry. Normal skin color. Normal skin turgor Lesions: no lesions Rashes: no rashes Trauma: no lacerations or abrasions Wounds: no wounds Nails: normal Neuro General: patient oriented x3, gait normal and CN's II-XI intact bilaterally Cranial nerves: Yes Equal, round and reactive pupils present Cognition (Neuro): normal cognition Gait exam (Neuro): Normal gait present Motor exam (neuro): 5/5 motor strength present throughout Sensory Exam: No Sensory deficit (Neuro) Deep tendon reflexes (DTR's): Right patellar reflex intensity grade: 2+ and Left patellar reflex intensity grade: 2+ Extrem General: Yes normal to inspection, No edema and No calf tenderness Psych Appearance: grossly normal Affect: normal affect Attitude: cooperative Thought process: Normal thought process present Coding Level of Care Code Est Pt Level 3 (02906) Est Pt Prev Care 40-64y(40338) Diagnoses Normal physical exam Z00.00 Hypertension, essential, benign I10 Chronic pain of left ankle M25.572; G89.29 Additional Codes CARLOS-7 Assessment Billing - CARLOS-7 Assessment Tool: CARLOS-7 Assessment 43488 ([id number]) PHQ-9 - 49739 - PHQ-9 Billing: Yes ([id number]) Assessment & Plan Assessment & Plan (1) Normal physical exam: Code(s): Z00.00 - Encounter for general adult medical examination without abnormal findings Category: Medical Plan: No significant functional limitation noted. Continue current treatment regimen. Healthy diet and routine exercise encouraged. Verbalized understanding and agreed with the plan. (2) Hypertension, essential, benign: Code(s): I10 - Essential (primary) hypertension Category: Medical Plan: Resting blood pressure is 118/74, controlled. Continue current treatment regimen. Follow-up in 3 months or sooner with symptoms or concerns. Verbalized understanding and agreed with the plan. (3) Chronic pain of left ankle: Code(s): M25.572 - Pain in left ankle and joints of left foot; G89.29 - Other chronic pain Category: Medical Plan: Reports intermittent left ankle discomfort with ambulating long distances. No acute symptoms at this time. Requests a note to park his vehicle short distance for his employer. Note given for his employer. Naproxen as needed. Warm/cool compresses encouraged. Follow-up as needed. Verbalized understanding and agreed with the plan.
[2024-12-08 13:12] VITALS: BP 123/76; PULSE 77; RESP 16; TEMP 36.8; O2SAT 98; BMI 30.8
[2024-12-08 13:43] VITALS: BP 118/74
--- OUTSIDE RECORDS SUMMARY | 2024-12-08 13:46 | XMS_ITS | Clinical Summary ---
Author Organization [facility] Address [address] [place] [address] Care Team Providers Care Home Health Manager Name Role Phone Unavailable Primary Care Provider [...]
== END 2024-12-08 14:13 | disposition home or self-care (01) ==
LOC: HO.HMCFM 13:02
PROVIDERS: PCP Nurse Practitioner Family; Visit Provider Nurse Practitioner Family
DX: Z00.00 Encounter for general adult medical examination without abnormal findings (principal); I10 Essential (primary) hypertension; M25.572 Pain in left ankle and joints of left foot; G89.29 Other chronic pain

== ENCOUNTER → 2024-12-08 13:01 | Outpatient (BNVA) | payer OTHER, SELFPAY | PROVIDERS: PCP Nurse Practitioner Family; Visit Provider Nurse Practitioner Family | DX: Z00.00 Encounter for general adult medical examination without abnormal findings (principal); I10 Essential (primary) hypertension; M25.572 Pain in left ankle and joints of left foot; G89.29 Other chronic pain | CPT/HCPCS: 96127 ==

== ENCOUNTER 2025-03-12 14:56 | Outpatient (AMB) | payer OTHER, SELFPAY ==
--- NOTE | 2025-03-12 14:58 | A.OFFPC_ITS ---
Vital Signs 03/12/25 15:01 Height 6 ft Weight 237 lb 8 oz BMI 32.2 BP 131/83 Blood Pressure Location Lt brachial Position Sitting Respiration 16 Pulse 67 Pulse Source Pulse Oximeter Temp 98.2 F Temp Source Oral Pulse Oximetry (%) 97 Oxygen Delivery Method Room Air Intake Visit Reasons: 3 mos HTN Intake Note: patient here for 3 months follow up on HTN Head Waiter Required: No Allergies avocado Allergy (Intermediate, Verified 03/12/25 15:11) itchy throat, shortness of breath banana Allergy (Intermediate, Verified 03/12/25 15:11) itchy throat, shortness of breath tree nut Allergy (Intermediate, Verified 03/12/25 15:11) itchy throat, shortness of breath Medication List - Last Reconciled 03/12/25 by Shani Chance CNP dupilumab (Dupixent) 300 mg subcut Q2W lisinopril 5 mg PO DAILY naproxen 500 mg PO BID PRN sildenafil 100 mg PO DAILY PRN Tobacco use date assessed: 03/12/25 Dental Screening Dental Screen Date: 03/12/25 Did you have a dental visit in the last 12 months?: Yes Did you have a dental problem in the last 6 months where you did not have access to dental care?: No Was dental information given to patient?: Patient has dentist HPI HPI Comments History of Present Illness Details 54-year-old male presents for hypertensi on follow-up. He admits to taking his medications as prescribed without adverse reactions. He notes that he has been making healthy lifestyle changes. No acute symptoms at this time. [facility] Medical History Arthritis Eczema Diverticulosis Fatty liver Hx of staphylococcal infection Gout HTN (hypertension) Surgical History H/O shoulder replacement H/O colonoscopy H/O umbilical hernia repair History of surgical removal of ganglion cyst History of ankle surgery Social History Household Members: Spouse and Children Housing: House Are you a primary health care sanitary technician to a significant other at home: No Do you presently have visiting nurse or other home services: No Alcohol intake: current Alcohol intake frequency: holidays/special occasions only Patient Tobacco Use Status: Never used Tobacco e-Cigarette/Vaping Use: Never Used Second Hand Smoke Exposure: No Substance Use Type: Marijuana Advance Directives Date on File: 05/11/23 service: No Current occupational status: employed 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 Cognitive needs: No Hearing needs: No Vision needs: Yes (reading glasses) Questionnaire Thrive Questionnaire Date Thrive assessed: 10/16/24 I am a: Patient What is your living situation today?: I have a steady place to live Within the past 12 months, did the food you bought not last and you didn't have the money to get more?: Never true Within the past 12 months, did you worry whether your food would run out before you got money to buy more?: Never true Do you have trouble paying for medicines?: No Do you have trouble getting transportation to medical appointments?: No Do you have trouble paying your heating and electricity bill?: No Do you have trouble taking care of your child, family member or friend?: No Do you have trouble with day-to-day activities such as bathing, preparing meals, shopping, managing finances, etc.?: No Are you currently unemployed and looking for a job?: No Are you interested in more education?: No Please select the resources that you would like help with: None Currently or been in a relationship where the following occur: No concerns reported THRIVE Score: 0 CARLOS-7 AMB Questionnaire CARLOS-7 Date CARLOS - 7 assessed: 12/08/24 Source: Developed by Drs. Marek Hermosillo, Ya Coffman, Shekhar Roberts and colleagues, with an educational beckie from [employer]. Review of Systems Const Details: Const Denies chills, Denies fatigue, Denies fever(s), Denies headache(s) and Denies weakness ENT Denies dizziness and Denies headache(s) Card Denies chest pain, Denies lightheadedness, Denies dyspnea and Denies other (Palpitations) Resp Denies cough, Denies dyspnea, Denies wheezing and Denies other ( shortness of breath) GI Denies abdominal pain, Denies melena, Denies hematochezia, Denies change in bowel habits, Denies dyspepsia and Denies nausea Denies hematuria and Denies dysuria Musc Denies abnormal gait, Denies myalgias, Denies arthralgias, Denies numbness and Denies tingling Skin/Breast Denies rash, Denies unusual bruising and Denies wounds Neuro Denies abnormal gait, Denies dizziness, Denies headache(s), Denies memory loss, Denies numbness, Denies Sensory deficit (Neuro), Denies tingling and Denies weakness Psych Denies anxiety, Denies depression, Denies memory loss Endo Denies cold intolerance, Denies fatigue, Denies heat intolerance, Denies polydipsia and Denies polyuria Aller/Immun Denies wheezing Physical exam (Primary Care) Vital Signs: Last Vital Signs Temp 98.2 F 03/12/25 15:01 Pulse 67 03/12/25 15:01 Resp 16 03/12/25 15:01 BP 131/83 03/12/25 15:01 Pulse Ox 97 03/12/25 15:01 Oxygen Delivery Method Room Air 03/12/25 15:01 BMI result Body Mass Index 32.2 Tobacco/Smoking Status: Tobacco use Status Tobacco use date assessed 03/12/25 03/12/25 15:05 Patient Tobacco Use Status Never used Tobacco 03/12/25 15:05 e-Cigarette/Vaping Use Never Used 03/12/25 15:05 Thrive Assessment: Date of Thrive Assessment Date Thrive assessed 10/16/24 03/12/25 15:05 Currently or been in a relationship where the following occur: No concerns reported Const Other: General: no acute distress and well developed Nutritional Appearance: well nourished Orientation/consciousness: patient oriented x3 HENMT Head: Yes normocephalic and Yes atraumatic Eyes General: appearance normal, both eyes and all related structures Pupils: Equal, round and reactive pupils present EOM: EOMs intact bilaterally Resp Effort & Inspection: normal respiratory effort Auscultation: clear to auscultation bilaterally Cardio Rate: regular rate Rhythm: regular rhythm Heart sounds: S1 normal heart sound present, S2 normal heart sound present, no gallops, no murmurs and no rubs GI Palpation (GI): No Abdominal aortic bruit present, Soft to palpation, nontender, No hepatosplenomegaly present and No Rebound tenderness present Auscultation: normal bowel sounds General: Yes no CVA tenderness Back/Spine/Pelvis Back: no CVA tenderness Cervical Spine: cervical ROM normal and No Cervical spine tenderness Thoracic/Lumbar Spine: thoraco-lumbar ROM normal, No pain with thoraco-lumbar RO M, No thoracic spinal tenderness and No lumbar spinal tenderness Extrem General: Yes normal to inspection, No edema and No calf tenderness Skin General: warm and dry. Normal skin color. Normal skin turgor Neuro General: patient oriented x3, gait normal and no focal neuro deficit Cranial nerves: Yes Equal, round and reactive pupils present Cognition (Neuro): normal cognition Gait exam (Neuro): Normal gait present Sensory Exam: No Sensory deficit (Neuro) Psych Appearance: grossly normal Affect: normal affect Attitude: cooperative Thought process: Normal thought process present Coding Level of Care Code Est Pt Level 3 (86436) Diagnoses Hypertension, essential, benign I10 Assessment & Plan Assessment & Plan (1) Hypertension, essential, benign: Code(s): I10 - Essential (primary) hypertension Category: Medical Plan: Blood pressure is 131/83, within goal of less than 140/90. Continue current treatment regimen. Low-sodium diet encouraged. Follow-up in 3 months or sooner with symptoms or concerns. Verbalized understanding and agreed with the plan.
[2025-03-12 15:01] VITALS: BP 131/83; PULSE 67; RESP 16; TEMP 36.8; O2SAT 97; BMI 32.2
--- OUTSIDE RECORDS SUMMARY | 2025-03-12 15:30 | XMS_ITS | Clinical Summary ---
Author Organization [facility] Address [address] [place] [address] Care Team Providers Care Segment Assembler Name Role Phone Unavailable Primary Care Provider [...] (1 of 2) 2019 Influenza Vaccine (#1) 2025 Pneumococcal Vaccine Aged Out No long er eligible based on patient's age to complete this topic RSV Ped < 20 months Aged Out No longe r eligible based on patient's age to complete this topic
== END 2025-03-12 15:20 | disposition home or self-care (01) ==
LOC: HO.HMCFM 14:57
PROVIDERS: PCP Nurse Practitioner Family; Visit Provider Nurse Practitioner Family
DX: I10 Essential (primary) hypertension (principal)

== ENCOUNTER 2025-06-15 14:48 | Outpatient (AMB) | payer OTHER, SELFPAY ==
--- NOTE | 2025-06-15 14:53 | A.OFFPC_ITS ---
Vital Signs 06/15/25 14:56 Height 6 ft Weight 229 lb BMI 31.1 BP 122/78 Blood Pressure Location Rt brachial Position Sitting Respiration 16 Pulse 94 Pulse Source Pulse Oximeter Temp 98.2 F Temp Source Temporal Artery Scan Pulse Oximetry (%) 98 Oxygen Delivery Method Room Air Intake Visit Reasons: 3 mos HTN Intake Note: Lukasz presents in the office today to follow up to hypertension. Allergies avocado Allergy (Intermediate, Verified 06/15/25 15:20) itchy throat, shortness of breath banana Allergy (Intermediate, Verified 06/15/25 15:20) itchy throat, shortness of breath tree nut Allergy (Intermediate, Verified 06/15/25 15:20) itchy throat, shortness of breath Medication List - Last Reconciled 06/15/25 by Shani Chance CNP dupilumab (Dupixent) 300 mg subcut Q2W lisinopril 5 mg PO DAILY naproxen 500 mg PO BID PRN sildenafil 100 mg PO DAILY PRN Tobacco use date assessed: 06/15/25 Dental Screening Dental Screen Date: 06/15/25 Did you have a dental visit in the last 12 months?: Yes Did you have a dental problem in the last 6 months where you did not have access to dental care?: No Was dental information given to patient?: Patient has dentist HPI HPI Comments History of Present Illness Details 55-year-old male presents for hypertensi on follow-up. He admits to taking his medications as prescribed without adverse reactions. He notes that he has been making healthy lifestyle changes. He notes that he has been experiencing intermittent anxiety symptoms in the past 2 months, occurring 1-3 times weekly, lasting between 30-40 minutes. He reports feeling symptoms of palpitations and feeling sick to his stomach. His symptoms occur while he is at work. He denies known triggers. He states that he likes his job. He drinks a total of 3 cups while at work. He denies history of anxiety or depression but has both documented as history. [facility] Medical History Arthritis Eczema Diverticulosis Fatty liver Hx of staphylococcal infection Gout HTN (hypertension) Surgical History H/O shoulder replacement H/O colonoscopy H/O umbilical hernia repair History of surgical removal of ganglion cyst History of ankle surgery Social History (Updated 06/15/25 @ 14:56 by Lala Lockhart CMA) Household Members: Spouse and Children Housing: House Are you a primary care rep to a significant other at home: No Do you presently have visiting nurse or other home services: No Alcohol intake: current Alcohol intake frequency: holidays/special occasions only Patient Tobacco Use Status: Never used Tobacco e-Cigarette/Vaping Use: Never Used Second Hand Smoke Exposure: No Substance Use Type: Marijuana Advance Directives Date on File: 05/11/23 service: No Current occupational status: employed Current occupation: [employer] Cognitive needs: No Hearing needs: No Vision needs: Yes (reading glasses) Questionnaire PHQ-9 Over the last 2 weeks, how often have you been bothered by any of the following problems? 1. Little interest or pleasure in doing things: several days 2. Feeling down, depressed, or hopeless: not at all 3. Trouble falling or staying asleep, or sleeping too much: not at all 4. Feeling tired or having little energy: not at all 5. Poor appetite or overeating: several days 6. Feeling bad about yourself - or that you are a failure or have let yourself or your family down: not at all 7. Trouble concentrating on things, such as reading the newspaper or watching television: not at all 8. Moving or speaking so slowly that other people could have noticed. Or the opposite - being so fidgety or restless that you have been moving around a lot more than usual: not at all 9. Thoughts that you would be better off or of hurting yourself in some way: not at all Total score: 2 Depression Screening Interpretation: Negative Depression Screening Done: Yes 66342 - PHQ-9 Billing: Yes Source: Developed by Drs. Marek Hermosillo, Ya Coffman, Shekhar Roberts and colleagues, with an educational beckie from [employer]. Thrive Questionnaire Date Thrive assessed: 10/16/24 I am a: Patient What is your living situation today?: I have a steady place to live Within the past 12 months, did the food you bought not last and you didn't have the money to get more?: Never true Within the past 12 months, did you worry whether your food would run out before you got money to buy more?: Never true Do you have trouble paying for medicines?: No Do you have trouble getting transportation to medical appointments?: No Do you have trouble paying your heating and electricity bill?: No Do you have trouble taking care of your child, family member or friend?: No Do you have trouble with day-to-day activities such as bathing, preparing meals, shopping, managing finances, etc.?: No Are you currently unemployed and looking for a job?: No Are you interested in more education?: No Please select the resources that you would like help with: None Currently or been in a relationship where the following occur: No concerns reported THRIVE Score: 0 CARLOS-7 AMB Questionnaire CARLOS-7 Date CARLOS - 7 assessed: 06/15/25 Feeling nervous, anxious, or on edge: 1 = Several days Not being able to stop or control worryin = Several days Worrying too much about different things: 1 = Several days Trouble relaxin = Several days Being so restless that it is hard to sit still: 0 = Not at all Becoming easily annoyed or irritable: 0 = Not at all Feeling afraid as if something awful might happen: 1 = Several days Total CARLOS-7 score (0-4 normal; 5-9 mild; 10-14 moderate; 15-21 severe): 5 Source: Developed by Drs. Marek Hermosillo, Ya Coffman, Shekhar Roberts and colleagues, with an educational beckie from [employer]. CARLOS-7 Assessment Billing CARLOS-7 Assessment Tool: CARLOS-7 Assessment 34829 Review of Systems Const Details: Const Denies chills, Denies fatigue, Denies fever(s), Denies headache(s) and Denies weakness ENT Denies dizziness and Denies headache(s) Card Denies chest pain, Denies lightheadedness, Denies dyspnea and Denies other (Palpitations) Resp Denies cough, Denies dyspnea, Denies wheezing and Denies other ( shortness of breath) GI Denies abdominal pain, Denies melena, Denies hematochezia, Denies change in bowel habits, Denies dyspepsia and Denies nausea Denies hematuria and Denies dysuria Musc Denies abnormal gait, Denies myalgias, Denies arthralgias, Denies numbness and Denies tingling Skin/Breast Denies rash, Denies unusual bruising and Denies wounds Neuro Denies abnormal gait, Denies dizziness, Denies headache(s), Denies memory loss, Denies numbness, Denies Sensory deficit (Neuro), Denies tingling and Denies weakness Psych Denies anxiety, Denies depression, Denies memory loss Endo Denies cold intolerance, Denies fatigue, Denies heat intolerance, Denies polydipsia and Denies polyuria Aller/Immun Denies wheezing Physical exam (Primary Care) Vital Signs: Last Vital Signs Temp 98.2 F 06/15/25 14:56 Pulse 94 06/15/25 14:56 Resp 16 06/15/25 14:56 BP 122/78 06/15/25 14:56 Pulse Ox 98 06/15/25 14:56 Oxygen Delivery Method Room Air 06/15/25 14:56 BMI result Body Mass Index 31.1 Tobacco/Smoking Status: Tobacco use Status Tobacco use date assessed 06/15/25 06/15/25 14:59 Patient Tobacco Use Status Never used Tobacco 06/15/25 14:56 e-Cigarette/Vaping Use Never Used 06/15/25 14:56 PHQ-9: PHQ-9 Score PHQ-9: Total score 2 06/15/25 15:40 Depression Screening Interpretation: Negative Thrive Assessment: Date of Thrive Assessment Date Thrive assessed 10/16/24 06/15/25 14:55 Currently or been in a relationship where the following occur: No concerns reported Const Other: General: no acute distress and well developed Nutritional Appearance: well nourished Orientation/consciousness: patient oriented x3 HENMT Head: Yes normocephalic and Yes atraumatic Eyes General: appearance normal, both eyes and all related structures Pupils: Equal, round and reactive pupils present EOM: EOMs intact bilaterally Resp Effort & Inspection: normal respiratory effort Auscultation: clear to auscultation bilaterally Cardio Rate: regular rate Rhythm: regular rhythm Heart sounds: S1 normal heart sound present, S2 normal heart sound present, no gallops, no murmurs and no rubs GI Palpation (GI): No Abdominal aortic bruit present, Soft to palpation, nontender, No hepatosplenomegaly present and No Rebound tenderness present Auscultation: normal bowel sounds General: Yes no CVA tenderness Back/Spine/Pelvis Back: no CVA tenderness Cervical Spine: cervical ROM normal and No Cervical spine tenderness Thoracic/Lumbar Spine: thoraco-lumbar ROM normal, No pain with thoraco-lumbar ROM, No thoracic spinal tenderness and No lumbar spinal tenderness Extrem General: Yes normal to inspection, No edema and No calf tenderness Skin General: warm and dry. Normal skin color. Normal skin turgor Neuro General: patient oriented x3, gait normal and no focal neuro deficit Cranial nerves: Yes Equal, round and reactive pupils present Cognition (Neuro): normal cognition Gait exam (Neuro): Normal gait present Sensory Exam: No Sensory deficit (Neuro) Psych Appearance: grossly normal Mood: calm Affect: normal affect Attitude: cooperative Thought process: Normal thought process present Coding Level of Care Code Est Pt Level 4 (72186) Diagnoses Hypertension, essential, benign I10 Anxiety F41.9 Additional Codes CARLOS-7 Assessment Billing - CARLOS-7 Assessment Tool: CARLOS-7 Assessment 10035 ([id number]) PHQ-9 - 91286 - PHQ-9 Billing: Yes ([id number]) Assessment & Plan Assessment & Plan (1) Hypertension, essential, benign: Comment: Goal <140/90 Code(s): I10 - Essential (primary) hypertension Category: Medical Plan: Blood pressure is 122/78, within goal of less than 140/90. Continue current treatment regimen. Routine exercise encouraged. Follow-up in 3 months for transfer of care and hypertension. Return sooner with symptoms or concerns. Verbalized understanding and agreed with treatment plan. (2) Anxiety: Code(s): F41.9 - Anxiety disorder, unspecified Category: Medical Plan: He notes that he has been experiencing intermittent anxiety symptoms in the past 2 months, occurring 1-3 times weekly, lasting between 30-40 minutes. He reports feeling symptoms of palpitations and feeling sick to his stomach. His symptoms occur while he is at work. He denies known triggers. He states that he likes his job. He drinks a total of 3 cups while at work. He denies history of anxiety or depression but has both documented as history. CARLOS-7 score revealed mild anxiety. Instructed a caffeine may cause anxiety symptoms instructed to cut down caffeine intake. Hydroxyzine 25 mg twice daily as needed ordered; advised to take as prescribed. Instructed on the risks, benefits, and potential adverse reactions of the me dication. Return with worsening or new symptoms. Verbalized understanding and agreed with the plan. Medications: New hydroxyzine HCl 25 mg PO BID PRN 60 tabs 0RF anxiety
[2025-06-15 14:56] VITALS: BP 122/78; PULSE 94; RESP 16; TEMP 36.8; O2SAT 98; BMI 31.1
--- OUTSIDE RECORDS SUMMARY | 2025-06-15 15:13 | XMS_ITS | Clinical Summary ---
Author Organization [facility] Address [address] [place] [address] Care Team Providers Care Silver Designer Name Role Phone Unavailable Primary Care Provider [...]
== END 2025-06-15 15:39 | disposition home or self-care (01) ==
LOC: HO.HMCFM 14:49
PROVIDERS: PCP Nurse Practitioner Family; Visit Provider Nurse Practitioner Family
DX: I10 Essential (primary) hypertension (principal); F41.9 Anxiety disorder, unspecified

== ENCOUNTER → 2025-06-15 14:48 | Outpatient (BNVA) | payer OTHER, SELFPAY | PROVIDERS: PCP Nurse Practitioner Family; Visit Provider Nurse Practitioner Family | DX: I10 Essential (primary) hypertension (principal); F41.9 Anxiety disorder, unspecified | CPT/HCPCS: 96127 ==